=== PATIENT | male | born 1990 | race Caucasian/White ===

== ENCOUNTER 2021-02-12 08:33 | Outpatient (REF) | payer OTHER, SELFPAY ==
--- NOTE | ~2021-02-12 | XR_ITS ---
EXAMINATION: XR SHOULDER, LEFT CLINICAL INFORMATION: Shoulder pain. COMPARISON: None TECHNIQUE: AP external rotation, Grashey, scapular Y, and axillary views of the left shoulder. FINDINGS: The bones and soft tissues are normal. No fracture. Glenohumeral and acromioclavicular alignment is anatomic with normal joint space. No abnormal soft tissue calcifications. XR/XR shoulder LT min 2V IMPRESSION: Normal left shoulder.
== END 2021-02-12 08:34 | disposition home or self-care (01) ==
LOC: HO.HOSX 08:33
PROVIDERS: Visit Provider Physician Assistant
DX: S43.004A Unspecified dislocation of right shoulder joint, initial encounter (principal)
CPT/HCPCS: 73030; 99202

== ENCOUNTER 2021-02-16 12:58 | Outpatient (REF) | payer OTHER, SELFPAY ==
--- NOTE | ~2021-02-16 | MR_ITS ---
EXAMINATION: MR SHOULDER WITHOUT CONTRAST, LEFT CLINICAL INFORMATION: Left shoulder injury. Pain. Decreased range of motion. Dislocation 02/09/2021. COMPARISON: None TECHNIQUE: MR images of the shoulder were obtained on a 1.5 Odalis high-field strength scanner without intravenous contrast material. FINDINGS: ROTATOR CUFF: There is a partial-thickness articular-sided tear of the teres minor at the insertion, measuring approximately 1.2 cm craniocaudal and involving at least one-half of the tendon thickness. Rotator cuff is otherwise intact. No muscle atrophy or fatty infiltration. BICEPS: Normal. CORACOACROMIAL ARCH: The undersurface of the acromion is flat with no subacromial spur. The acromioclavicular joint is normal. LABRUM/CAPSULE: A circumferential tear is evident at the glenoid labrum. Superiorly, the tear extends into the biceps labral anchor without appreciable involvement of the biceps tendon itself. Posteriorly, the tear propagates along the posterior periosteal attachment to the glenoid rim with resultant attachment of the posterior labrum. Inferiorly, the labrum is torn and partially detached from the glenoid. The anteroinferior labrum, in particular, appears displaced anteroinferiorly by up to 4 mm. Joint capsule is thickened and edematous. The posterior band of the inferior glenohumeral ligament appears torn at the humeral attachment and is otherwise edematous and thickened. This tear underlies the attachment of the teres minor muscle. The anterior band of the inferior glenohumeral ligament also appears partially detached at the humeral insertion. The middle glenohumeral ligament is edematous and ill-defined. GLENOHUMERAL JOINT/MARROW: An articular cortical impaction injury at the posterosuperior humeral head measures 1 x 2 cm in an area with a depth of depression of 0.5 cm. The underlying marrow is edematous. There is associated cortical irregularity in this region. The posterior margin of the glenoid is edematous and irregular with stripping of the periosteum at the site of the labral tear. There is a small glenohumeral joint effusion. MR/MR shoulder LT wo con IMPRESSION: 1. Circumferential tear of the glenoid labrum with a nondisplaced, detached posterior labrum and a detached and minimally displaced anteroinferior labrum. 2. Partial tears of the anterior and posterior band of the inferior glenohumeral ligament at the humerus. 3. Small partial-thickness articular-sided tear of the teres minor muscle at the insertion of the humeral head. 4. Small to moderate-sized Hill-Sachs impaction deformity. 5. Osseous contusion of the anteroinferior glenoid without a discrete osseous Bankart injury.
== END 2021-02-16 12:59 | disposition home or self-care (01) ==
LOC: HO.MRI 12:58
PROVIDERS: Visit Provider Physician Assistant
DX: S43.005A Unspecified dislocation of left shoulder joint, initial encounter (principal); X58.XXXA Exposure to other specified factors, initial encounter; Y93.9 Activity, unspecified; Y92.9 Unspecified place or not applicable; Y99.9 Unspecified external cause status
CPT/HCPCS: 73221

== ENCOUNTER → 2021-02-26 09:21 | Outpatient (BNVA) | payer OTHER, SELFPAY | PROVIDERS: Visit Provider Physician Assistant ==

== ENCOUNTER → 2021-04-06 09:19 | Outpatient (BNVA) | payer OTHER, SELFPAY | PROVIDERS: Visit Provider Physician Assistant ==

== ENCOUNTER 2021-04-28 11:00 | Outpatient (REF) | payer OTHER, SELFPAY ==
[2021-04-28 11:38] LABS: Hematocrit 46.6 % (42-52); Hemoglobin 15.2 g/dl (14.0-18.0); Mean Corpuscular HGB Conc 32.6 g/dl (31.0-36.0); Mean Platelet Volume 11.8 fL (9.4-12.4); Platelet Count 213 X10*3/uL (160-400); Red Blood Count 5.42 X10*6/uL (4.60-5.80); Red Cell Distribution Width 12.5 % (11.0-16.0); White Blood Count 3.4 X10*3/uL (4.8-10.8)
[2021-04-28 11:54] LABS: Estimated Average Glucose 100 mg/dL; Hemoglobin A1c % 5.1 %
[2021-04-28 12:10] LABS: Alanine Aminotransferase 11 U/L (0-40); Albumin Level 4.7 g/dL (3.5-5.0); Alkaline Phosphatase 57 U/L (39-117); Anion Gap 14 (12-20); Aspartate Amino Transferase 13 U/L (5-37); Bilirubin Total 0.8 mg/dL (0.0-1.0); Blood Urea Nitrogen 13 mg/dL (9-16); Calcium 9.9 mg/dL (8.4-10.2); Carbon Dioxide 27 mmol/L (22-29); Chloride 105 mmol/L (96-108); Cholesterol 153 mg/dL; Estimated Glomerular Filt Rate > 60; Glucose Fasting 106 mg/dL (60-99); HDL Cholesterol 55 mg/dL; LDL Cholesterol Calculated 88 mg/dl; Potassium 4.6 mmol/L (3.3-5.1); Sodium 141 mmol/L (135-145); Total Protein 7.7 g/dL (6.5-8.0); Triglycerides 54 mg/dL
[2021-04-28 12:35] LABS: TSH reflex Free T4 0.98 uIU/mL (0.32-4.0)
== END 2021-04-28 11:01 | disposition home or self-care (01) ==
LOC: HO.LAB 11:00
PROVIDERS: PCP Physician Assistant; Visit Provider Physician Assistant
DX: Z13.220 Encounter for screening for lipoid disorders (principal); Z13.29 Encounter for screening for other suspected endocrine disorder; I10 Essential (primary) hypertension
CPT/HCPCS: 36415; 80053; 80061; 83036; 84443; 85027

== ENCOUNTER → 2021-05-10 09:31 | Outpatient (BNVA) | payer OTHER, SELFPAY | PROVIDERS: Visit Provider Physician Assistant ==

== ENCOUNTER 2021-05-11 08:00 | Outpatient (RCR) | payer OTHER, SELFPAY ==
--- NOTE | 2021-02-18 08:59 | MHC.PT.EP ---
[facility] [place] Office [place] Office [place] Office [address] Rach Chamorro [address] [phone] F: [phone] F: [phone] F: [phone] F: [phone] Physical Therapy Plan of Care Date of Evaluation: Date of Surgery: Diagnosis: pain in unspecified shoulder L shoulder dislocation Assessment: 31 y/o RHD male s/p L anterior shoulder dislocation 02/09/21. He currently has difficulty with dressing, grooming, sleeping, using L shoulder, sneezing, hobbies such as golf and working as a nurse. Examination shows decreased L shoulder PROM (AROM NT), L shoulder not formally tested secondary to precautions of recent dislocation, elbow and wrist ROM WNL, sensation intact to light touch, and impaired postural awareness. Recommend PT 2x/week for 12 weeks to address impairments, implement HEP, and optimize functional mobility. Frequency and Duration: The patient will be seen 2x/week for 12 weeks Short Term Goals: 6 weeks 1. Demonstrate AAROM flexion to 160 2. I with HEP 3. Pt will demonstrate L shoulder ER to 10 degrees Skilled Nursing Goals: 12 weeks 1. I with HEP and self management of sx 2. Pt will demonstrate L shoulder AROM WFL to assist with dressing and reaching overhead 3. Pt will demonstrate L shoulder strength to 4/5 to assist with lifting and work duties Treatment Plan: Modalities to reduce pain, spasms and effusion. Manual therapy to restore motion and function. Therapeutic exercise to improve strength and flexibility. Neuromuscular re-education for posture and balance. Therapeutic activities to return to functional activities of daily living. Electronically signed by: Saida Dumont PT Please sign and return to therapist. Thank you for your referral.
--- NOTE | 2021-04-06 09:17 | MHC.PT.PR ---
[facility] [place] Office [place] Office [place] Office [address] Rach Chamorro [address] [phone] F: [phone] F: [phone] F: [phone] F: [phone] Physical Therapy Progress Note Diagnosis: pain in unspecified shoulder L shoulder dislocation Date of Surgery: NA Date of Evaluation: 02/18/21 Treatments to Date: 11 Cancellations to Date: 1 No Shows to Date: 0 Subjective: Reports overall feeling good with end-range tightness. Every once in awhile, he has moments of instability or pain, but it is random and he cannot associate what causes these episodes. Pain Score and Location: 0 L Shoulder Objective Measures: Shoulder AROM ER at 90 deg abd: 62 ER at 45 deg abd: 50 Flexion 180 Abduction ~180 Assessment: Pt is progressing well with full AROM except external rotation is still limited. He tends to compensate with thoracic extension with ER. He reports fatigue at end-range flexion, abduction, and external rotation with exercises. Good scapular control noted. He may benefit from manual resistance at end range to improve end-range strength and stability. Continue to progress per protocol (he is between phase 2 and 3 at this time). He has a f/u with ortho today. PT Plan: Continue with PT Frequency and Duration: The patient will be seen 2x/week for 3 more weeks Treatment Plan: Therapeutic Exercise Dynamic Therapeutic Activities Neuromuscular Re-ed Manual Therapies Home Exercise Program Patient Education Reviewed/ Agreed with Student Documentation: Yes Therapist: Saida Dumont PT Thank you once again for your referral.
--- NOTE | 2021-04-28 09:58 | MHC.PT.OD ---
[facility] [place] Office [place] Office [place] Office [address] Rach Chamorro [address] [phone] F: [phone] F: [phone] F: [phone] F: [phone] Physical Therapy Daily Note Diagnosis: pain in unspecified shoulder L shoulder dislocation Date of Surgery: NA Date of Evaluation: 02/18/21 Date of Treatment: 04/22/21 Treatments to Date: 15 Cancellations to Date: 1 No Shows to Date: 0 Authorized Visits: 100 Insurance End Date: Precautions/ Contraindications:L shoulder anterior dislocation 02/09/21 Subjective: He states he feels a click/clunk 75% of the time he raises his arm in scaption around 75-80 degrees. Pain Score and Location: 0 L Shoulder Objective Flowsheet: Tests & Measures 04/06 Shoulder AROM ER at 90 deg abd: 62 ER at 45 deg abd: 50 Flexion 180 Abduction ~180 Exercises - Moving body blade through ABD & Flexion range x 60 sec x 2 each - Body blad at 90 degrees flexion, scaption, ABD x 30 sec x 3 each - Ball on wall moving through flexion B x 60 sec x 3 - Prone Y's w/ 1lb 3 x 10 - standing GTB row L side only 3x10 - Standing H.ABD at 90 degrees SH flexion w/ SH full ER w/ YTB 3 x 10 - standing RTB shld ext L side only 3x10 (Not today) s/l abd. and scaption c 1# 3x10 ea (Not today) bear crawls forward/lateral 8'x4 ea Work simulation: rolling pt supine to s/l x3 and boosting 1 person x2 2 people x1 Half kneel RTB ER 3x10 Quadruped progressions: hip ext./UE ext. 2x10 ea Incline BOSU pushups 2x10 Body blade IR/ER/Flex 3x45 sec ea (Not today) s/l ER manual resistance concentric/eccentric 3x10 Supine RS at 45* 70* 90* 2x30 sec ea Supine manual resistance concentric/eccentric flexion thru range x4 Modalities Assessment: Clicking remains random to Edward. No clicks noted during session today. He continues to tolerate exercise well at PT with good effort. He showed improve scapular control today during exercises maintaining retraction and depression when needed. 90 degrees H.ABD with full ER issued with YTB for HEP. Continue to strengthen his scpaular stability per protocol. PT Plan: Shoulder dislocation protocol, rhythmic stabilization, isometrics, ROM Protocol in chart Short Term Goals: 6 weeks 1. Demonstrate AAROM flexion to 160 - met 2. I with HEP - met 3. Pt will demonstrate L shoulder ER to 10 degrees - met Vp Organizational Development Goals: 12 weeks 1. I with HEP and self management of sx 2. Pt will demonstrate L shoulder AROM WFL to assist with dressing and reaching overhead - met 3. Pt will demonstrate L shoulder strength to 4/5 to assist with lifting and work duties Electronically signed by: Jeannine Morgan PT, DPT
--- NOTE | 2021-06-23 11:25 | MHC.PT.DC ---
[facility] [place] Office [place] Office [place] Office [address] Rach Chamorro [address] [phone] F: [phone] F: [phone] F: [phone] F: [phone] Physical Therapy Discharge Report Diagnosis: pain in unspecified shoulder L shoulder dislocation Date of Surgery: NA Date of Evaluation: 02/18/21 Date of Discharge: 06/23/21 Treatments to Date: 19 Cancellations to Date: 1 No Shows to Date: 0 Discharge Status: Achieved Goals Improved Function Independent with HEP Discharge Summary: Pt did not f/u with final visit and has RTW. At last visit, Pt continues to demonstrate improved endurance with shoulder ER and scapular stabilization exercises. Pt met with ortho yesterday and is cleared to return to work. Pt will schedule PT 1-2 weeks out to f/u with work and review and progress exercises; pt in agreement. Pt educated on increasing volume of exercises at home with sets/reps to tolerance and increase weight. Next visit increase shoulder abd range to perform standing ER c band. Electronically signed by: Saida Dumont PT, DPT Please sign and return to therapist. Thank you for your referral.
== END 2021-06-23 11:26 | disposition home or self-care (01) ==
LOC: HO.PT 08:00
PROVIDERS: Visit Provider Physician Assistant
DX: M25.512 Pain in left shoulder (principal)
CPT/HCPCS: 97110; 97112; 97140; 97161; 97530

== ENCOUNTER → 2021-06-08 08:23 | Outpatient (BNVA) | payer OTHER, SELFPAY | PROVIDERS: PCP Physician Assistant; Visit Provider Internal Medicine | DX: R00.2 Palpitations (principal); Z86.79 Personal history of other diseases of the circulatory system | CPT/HCPCS: 93005 ==

== ENCOUNTER → 2021-06-22 10:59 | Outpatient (REF) | payer OTHER, SELFPAY ==
--- NOTE | 2021-06-22 11:03 | HM_ITS ---
Patient was monitored for total period of 14 days and 2 hours. Based on the was normal sinus rhythm with average heart rate of 75 beats per minute There were no sustained arrhythmias noted No total of 158 PACs accounting for 0.01% of total beats. This account for very rare PACs There were 2 supraventricular episodes longest 4 beats at 162 beats per minute noted There were total of 720 isolated PVCs accounting for total burden of 0.06%, very rare PVCs. Patient reported event correlates with sinus rhythm MTDD
== END ==
LOC: HO.CARD 10:59
PROVIDERS: PCP Physician Assistant; Visit Provider Internal Medicine
DX: R00.2 Palpitations (principal)
CPT/HCPCS: 93246

== ENCOUNTER → 2021-07-08 07:30 | Outpatient (REF) | payer OTHER, SELFPAY ==
--- NOTE | 2021-07-08 07:33 | CA_ITS ---
Transthoracic Echocardiogram Patient (Last, First, Middle): Edward Jorge J Gender: Male Date of : 1990 Age: 31 Procedure Date: 07/08/2021 Procedure Type: Transthoracic Echocardiogram Location: OP Height: 187.96 cm Weight: 83.92 kg BSA: 2.10 m2 Heart Rate: bpm BP: 140 / 80 mmHg Thread Drawer: ELAINA/JOANN Referring MD: Lester Garcia MD Symptoms: R00.2 - Palpitations Study Quality: Good ECG Rhythm: Sinus Conclusions: - The left ventricular systolic function is normal. The calculated ejection fraction is 59% by biplane method. - No obvious valvular pathology seen on this study. Findings Left Ventricle Normal left ventricular cavity size. There is normal left ventricular wall thickness. The left ventricular systolic function is normal. The calculated ejection fraction is 59% by biplane method. There is no evidence of regional wall motion abnormalities. Diastolic function is normal for age. Right Ventricle Normal right ventricular cavity size and systolic function. Atria Both atria are normal in size. Aortic Valve There is a normal trileaflet aortic valve. There is no aortic valve stenosis. There is no aortic valve regurgitation. Mitral Valve The mitral valve appears normal. There is trace mitral valve regurgitation. There is no mitral valve stenosis. Pulmonic Valve The pulmonic valve was not well visualized. Tricuspid Valve Normal tricuspid valve structure. There is trace tricuspid valve regurgitation. The pulmonary artery systolic pressure is normal. Great Vessels The aorta was not well visualized. The aortic annulus is normal in size. Venous The inferior vena cava is normal in size and collapses greater than 50% with inspiration. Pericardium/Pleural There is a trivial pericardial effusion. Prior Study Comparison No prior study available for comparison. Recommendations, Care & Conclusions No obvious valvular pathology seen on this study. Measurements 2D Linear Measurements IVSd: 0.81 0.6-0.9/0.6-1.0 cm LVIDd: 5.34 3.9-5.3/4.2-5.9 cm LVIDd Index: 2.54 2.4-3.2/2.2-3.1 cm/m2 LVIDs: 3.70 2.0-3.6 cm LVPWd: 0.75 0.7-1.1 cm Ao Root: 3.30 2.1-3.5 cm LA Diam: 3.50 2.7-3.8/3.0-4.0 cm LAIDs Index: 1.67 1.5-2.3 cm/m2 LV Mass: 183.73 67-162/88-224 g LV Mass Index: 87.49 43-95/49-115 g/m2 LVOT Diam: 2.20 3.0+(-)1.3 cm 2D Systolic Function EF 4C: 57.40 >55% EF 2C: 61.30 >55% EF BiP: 59.00 >55% Mitral Valve MV Pk E: 0.75 MV PK A: 0.64 MV Decel Time: 230.00 E/A: 1.20 E'Lateral: 15.20 E'Medial: 12.40 E/E' Med: 6.00 E/E' Lat: 4.90 PHT: 67.00 MVA PHT: 3.28 Decel Sequoyah: 3.26 Aortic Valve AoV Pk Warren: 1.42 AoV Mn Warren: 1.05 AoV VTI: 0.32 AoV Pk Grad: 8.00 Aov Mn Grad: 5.00 NIELS Cont.VTI: 2.62 LVOT LVOT Pk Warren: 1.17 LVOT Mn Warren: 0.79 LVOT VTI: 0.22 LVOT Pk Grad: 5.00 LVOT Mn Grad: 3.00 LVOT Diam: 2.20 LVOT Area: 3.80 Diastolic Function MV Pk E: 0.75 MV Pk A: 0.64 E/A: 1.20 E'Medial: 12.40 E/E' Med: 6.00 E' Laterial: 15.20 E/E' Lat: 4.90 Right Ventricle TAPSE (mm): 2.88 TVS' Warren: 15.60 Tricuspid Valve TR Pk Warren: 1.94 TR Pk Grad: 15.00 RA Press: 3.00 RVSP: 18.00 Great Vessels Aorta Ao Root-2D: 3.30 2.0-3.7 cm Ao Arch: 2.20 Updated in Other Vendor System with Status of Final Lester Garcia MD electronically signed on 07/09/2021 11:28:58 AM with status of Final
[2021-07-11 13:26] LABS: TS Negative Control Passed; TS Panel A 0; TS Panel B 0; TS Positive Control Passed; TSpotTB Negative (SeeBelow)
== END ==
LOC: HO.CARD 07:30
PROVIDERS: Absent Provider Physician Assistant; PCP Physician Assistant; Visit Provider Internal Medicine
DX: Z11.1 Encounter for screening for respiratory tuberculosis (principal); R00.2 Palpitations
CPT/HCPCS: 36415; 86481; 93306

== ENCOUNTER 2021-07-23 13:06 | Outpatient (REF) | payer OTHER, SELFPAY ==
[2021-07-23 13:24] LABS: MANUAL DIFF FLAG NO
[2021-07-23 13:45] LABS: Urine Cytology See Pathology rpt
[2021-07-23 13:47] LABS: Basophils Absolute Auto 0.1 X10*3/uL (0.0-0.2); Basophils Percent Auto 0.8 % (0-2); Eosinophils Absolute Auto 0.3 X10*3/uL (0.0-0.4); Hematocrit 44.6 % (42-52); Hemoglobin 15.1 g/dl (14.0-18.0); Imm Gran Abs Auto 0.02 X10*3/uL (0.00-0.03); Imm Gran Pct Auto 0.3 % (0.0-0.4); Lymphocytes Absolute Auto 1.6 X10*3/uL (1.2-4.9); Lymphocytes Percent Auto 24.8 % (20-40); Mean Corpuscular HGB Conc 33.9 g/dl (31.0-36.0); Mean Corpuscular Hemoglobin 28.5 pg (27.0-33.0); Mean Corpuscular Volume 84.2 fL (80-98); Mean Platelet Volume 11.1 fL (9.4-12.4); Monocytes Absolute Auto 0.7 X10*3/uL (0.1-1.2); Neutrophils Absolute Auto 3.9 X10*3/uL (2.0-8.3); Neutrophils Percent Auto 60.1 % (45-73); Platelet Count 256 X10*3/uL (160-400); Red Cell Distribution Width 12.4 % (11.0-16.0); White Blood Count 6.5 X10*3/uL (4.8-10.8)
[2021-07-23 13:55] LABS: Appearance Urine CLEAR; Color Urine STRAW; Glucose Urine UA NEG (NEG); Leukocyte Esterase Urine NEG (NEG); Nitrite Urine NEG (NEG); Specific Gravity - Urine <= 1.005 (1.005-1.025); Urine Blood NEG (NEG); Urine Ketones NEG (NEG); Urine Protein NEG (NEG-TRACE)
== END 2021-07-23 13:07 | disposition home or self-care (01) ==
LOC: HO.LAB 13:06
PROVIDERS: PCP Physician Assistant; Visit Provider Physician Assistant
DX: R82.90 Unspecified abnormal findings in urine (principal); R30.0 Dysuria; D72.819 Decreased white blood cell count, unspecified
CPT/HCPCS: 36415; 81003; 85025; 87086; 88112

== ENCOUNTER → 2022-07-27 09:44 | Outpatient (RCR) | payer OTHER, SELFPAY ==
[2020-08-20 07:07] LABS: COVID-19 Test Negative (Negative)
[2020-09-02 14:15] LABS: COVID-19 Test Negative (Negative); IDNOW Serial# 55D5AD1C
== END | disposition home or self-care (01) ==
LOC: HO.EMPCOV 08-20 06:41
PROVIDERS: Visit Provider Internal Medicine
DX: Z20.828 Contact with and (suspected) exposure to other viral communicable diseases (principal)
CPT/HCPCS: 87635; C9803

== ENCOUNTER 2022-12-28 10:26 | Outpatient (REF) | payer OTHER, SELFPAY ==
[2022-12-28 10:37] LABS: MANUAL DIFF FLAG NO
[2022-12-28 11:03] LABS: Basophils Percent Auto 0.7 % (0-2); Eosinophils Absolute Auto 0.1 X10*3/uL (0.0-0.4); Eosinophils Percent Auto 2.4 % (0-4); Hematocrit 47.5 % (42.0-52.0); Hemoglobin 15.9 g/dl (14.0-18.0); Imm Gran Abs Auto 0.01 X10*3/uL (0.00-0.03); Imm Gran Pct Auto 0.2 % (0.0-0.4); Lymphocytes Absolute Auto 1.3 X10*3/uL (1.2-4.9); Lymphocytes Percent Auto 32.2 % (20-40); Mean Corpuscular HGB Conc 33.5 g/dl (31.0-36.0); Mean Corpuscular Hemoglobin 28.7 pg (27.0-33.0); Mean Corpuscular Volume 85.7 fL (80.0-98.0); Mean Platelet Volume 11.4 fL (9.4-12.4); Monocytes Absolute Auto 0.5 X10*3/uL (0.1-1.2); Monocytes Percent Auto 11.8 % (2-11); Neutrophils Absolute Auto 2.2 x10*3/uL (2.0-8.3); Neutrophils Percent Auto 52.7 % (45-73); Platelet Count 200 X10*3/uL (160-400); Red Blood Count 5.54 X10*6/uL (4.60-5.80); Red Cell Distribution Width 12.2 % (11.0-16.0); White Blood Count 4.2 X10*3/uL (4.8-10.8)
[2022-12-28 14:42] LABS: Alanine Aminotransferase 14 U/L (0-40); Albumin Level 4.5 g/dL (3.5-5.0); Alkaline Phosphatase 62 U/L (39-117); Anion Gap 10 (12-20); Aspartate Amino Transferase 14 U/L (5-37); Bilirubin Total 0.8 mg/dL (0.0-1.0); Blood Urea Nitrogen 15 mg/dL (9-16); Calcium 9.5 mg/dL (8.4-10.2); Carbon Dioxide 32 mmol/L (22-29); Chloride 103 mmol/L (96-108); Cholesterol 182 mg/dL; Estimated Glomerular Filt Rate > 60; Glucose Random 91 mg/dL (60-115); HDL Cholesterol 55 mg/dL; LDL Cholesterol Calculated 118 mg/dl; Potassium 4.4 mmol/L (3.3-5.1); Sodium 141 mmol/L (135-145); Total Protein 7.2 g/dL (6.5-8.0); Triglycerides 45 mg/dL
[2022-12-28 15:21] LABS: Folate 15.3 ng/mL (> or = 4.0); Free T4 (Free Thyroxine) 1.06 ng/dL (0.71-1.85); Thyroid Stimulating Hormone 1.05 uIU/mL (0.32-4.0)
[2022-12-29 06:41] LABS: Vitamin B12 1071 pg/mL (200-900)
== END 2022-12-28 10:27 | disposition home or self-care (01) ==
LOC: HO.LAB 10:26
PROVIDERS: PCP Internal Medicine; Visit Provider Internal Medicine
DX: K21.9 Gastro-esophageal reflux disease without esophagitis (principal); E78.00 Pure hypercholesterolemia, unspecified
CPT/HCPCS: 36415; 80053; 80061; 82607; 82746; 84439; 84443; 85025

== ENCOUNTER 2023-07-03 14:57 | Outpatient (AMB) | payer OTHER, SELFPAY ==
[2023-07-03 15:04] VITALS: BP 116/72; PULSE 75; O2SAT 99; BMI 24.8
--- NOTE | 2023-07-03 15:04 | MHC.PC.OV ---
Vital Signs 07/03/23 15:04 Height 6 ft 2 in Weight 193 lb BMI 24.8 BP 116/72 Blood Pressure Location Lt brachial Position Sitting Pulse 75 Pulse Source Pulse Oximeter Pulse Oximetry (%) 99 Oxygen Delivery Method Room Air Intake Visit Reasons: Discuss stool changes Intake Note: Pt is here to discuss ongoing stool changes due to medications. 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 Accompanied by: Self / Same As Patient Allergies No Known Allergies Allergy (Verified 07/03/23 15:14) Medication List - Last Reconciled 07/03/23 by Javon Martinez PA-C bupropion HCl (Wellbutrin XL) 300 mg PO QAM omeprazole 20 mg PO DAILY Tobacco use date assessed: 11/07/22 Dental Screening Dental Screen Date: 07/03/23 Did you have a dental visit in the last 12 months?: No Did you have a dental problem in the last 6 months where you did not have access to dental care?: No Was dental information given to patient?: Patient has dentist HPI Discuss stool changes HPI Details Patient is a 33-year-old male here today for problem visit. Reports having started strattera 6 month ago ADHD and believed he started to have changes in bowel habits. He reports also noting mucus in his stools. Her he does report having abdominal pain though was not necessarily associated with the bowel movement. He denies any rapid weight loss, fevers or vomiting. He does report having a family history of colon cancer. He has tried [id number] meds, probiotics and changes in his diet which have not been very affective. He also reports having tried to non stimulant ADHD medication recently which have caused him side effect in were not effective. He is interested in starting a stimulant medication to help him with his attention focus on tasks at work. He works as an RN in primary care. [facility] Medical History (Updated 07/03/23 @ 15:40 by Javon Martinez PA-C) Annual physical exam Heart palpitations Tinea versicolor Shoulder pain Surgical History H/O adenoidectomy History of cardiac cath H/O elbow surgery History of ankle surgery Family History Paternal Uncle Mental health disorder CLL (chronic lymphocytic leukemia) Father Prostate cancer Paternal Grandfather Colon cancer Paternal Aunt Colon cancer Maternal Grandmother Heart attack Social History Housing: House Alcohol intake: current Patient Tobacco Use Status: Never used Tobacco e-Cigarette/Vaping Use: Never Used Second Hand Smoke Exposure: No service: No Current occupational status: employed and unemployed Current occupation: [employer] Nurse - Right Handed Cognitive needs: No Hearing needs: No Vision needs: No Questionnaire Thrive Questionnaire Date Thrive assessed: 01/04/23 SUDHEER-7 AMB Questionnaire SUDHEER-7 Date SUDHEER - 7 assessed: 01/04/23 Source: Developed by Drs. Alex Henry, Brit Dickey, Peter Mcmanus and colleagues, with an educational yousuf from [employer]. Review of Systems Const Denies headache(s) Eyes Denies loss of vision ENT Denies vertigo, Denies dizziness, Denies headache(s) and Denies sore throat Card Denies chest pain, Denies leg edema and Denies lightheadedness Resp Denies cough, Denies hemoptysis and Denies wheezing GI Reports abdominal pain, Denies melena, Reports bloating, Reports change in bowel habits, Denies constipation, Denies diarrhea and Denies vomiting Denies dysuria, Denies urinary frequency and Denies urinary urgency Musc Denies arthralgias, Denies joint swelling, Denies numbness and Denies tingling Neuro Denies Abnormal speech present, Denies behavioral changes, Denies vertigo, Denies dizziness, Denies headache(s), Denies loss of vision, Denies memory loss, Denies numbness and Denies tingling Psych Denies anxiety, Denies behavioral changes, Denies depression, Denies memory loss and Denies panic attacks Vu/Lymph Denies easy bleeding and Denies easy bruising Aller/Immun Denies wheezing Physical exam (Primary Care) Vital Signs: Last Vital Signs Pulse 75 07/03/23 15:04 BP 116/72 07/03/23 15:04 Pulse Ox 99 07/03/23 15:04 Oxygen Delivery Method Room Air 07/03/23 15:04 BMI result Body Mass Index 24.8 Tobacco/Smoking Status: Tobacco use Status Tobacco use date assessed 11/07/22 07/03/23 15:05 Patient Tobacco Use Status Never used Tobacco 07/03/23 15:05 e-Cigarette/Vaping Use Never Used 07/03/23 15:05 Thrive Assessment: Date of Thrive Assessment Date Thrive assessed 01/04/23 07/03/23 15:05 Const General: healthy appearing, no acute distress, alert and awake Nutritional Appearance: well nourished Orientation/consciousness: oriented to person, oriented to place and oriented to time HENMT Ears: TM's normal bilaterally General nose exam: Normal nasal mucous membranes and turbinates present Eyes Conjunctivae: conjunctivae normal Sclerae: sclerae normal Pupils: Equal, round and reactive pupils present Neck Neck: Yes no lymphadenopathy and Yes no JVD Thyroid: Thyroid normal Carotids: no bruits Resp Effort & Inspection: normal respiratory effort and not tachypneic Auscultation: no crackles, no rales, no rhonchi and no wheezes Cardio Rate: regular rate Rhythm: regular rhythm Heart sounds: no murmurs and normal S1 and S2 GI Palpation (GI): Soft to palpation, nontender, no hepatomegaly and no splenomegaly Auscultation: normal bowel sounds Skin General skin exam: no rashes or lesions noted and dry skin Neuro General: oriented to person, oriented to place and oriented to time Cranial nerves: Yes Equal, round and reactive pupils present Speech: No Abnormal speech present Gait exam (Neuro): Normal gait present Motor exam (neuro): no tremor noted Extrem Right upper extremity: full ROM Left upper extremity: full ROM Right lower extremity: full ROM; no edema Left lower extremity: full ROM; no edema Psych Mental Status: mental status grossly normal Speech and movement: Normal speech and movement present Affect: normal affect Attitude: cooperative Thought process: Normal thought process present Assessment and Plan Assessment & Plan (1) Change in bowel habits: Code(s): R19.4 - Change in bowel habit Plan: Patient is a 6 month history change in stool and mucus in his stool. He does report some intermittent abdominal cramping that is global eyes and not targeted to 1 area of his abdomen. He denies any fevers or diarrhea. No significant weight loss noted He has tried stool bulking agents, probiotics and changing his diet all without much significant improvement in his bowel habits and mucus noted in his stool. He does report having a family history of colon cancer and is interested in prep seeing GI for colonoscopy. If workup negative will consider pelvic floor therapy for possible pelvic floor dysfunction. (2) Mucus in stool: Code(s): R19.5 - Other fecal abnormalities (3) ADHD: Code(s): F90.9 - Attention-deficit hyperactivity disorder, unspecified type Qualifiers: Attention deficit-hyperactivity disorder type: predominantly inattentive Qualified Code(s): F90.0 - Attention-deficit hyperactivity disorder, predominantly inattentive type Plan: Has tried both Strattera and Wellbutrin for ADHD-inattentive which were ineffective in cause side effects. Was on stimulant medication in his younger though it hers which were factor for him. He is interested in restarting stimulant medication to help be more focused on job tasks. Orders: Orders Leukocytes Stool Qualitative 07/03/23 R19.5 - Other fecal abnormalities CRP High Sensitivity 07/03/23 R19.5 - Other fecal abnormalities Lipase 07/03/23 R19.5 - Other fecal abnormalities pH stool 07/03/23 R19.5 - Other fecal abnormalities Giardia Ag Stool EIA 07/03/23 R19.5 - Other fecal abnormalities Liver Panel 07/03/23 R19.5 - Other fecal abnormalities Complete Blood Count no Diff 07/03/23 R19.5 - Other fecal abnormalities Erythrocyte Sedimentation Rate 07/03/23 R19.5 - Other fecal abnormalities Referrals Gastroenterology Referral R19.5 - Other fecal abnormalities Medications: New dextroamphetamine-amphetamine 10 mg (Adderall) Partial Fill upon patient request. 10 mg PO DAILY 28 days 28 tabs 0RF F90.9 - Attention-deficit hyperactivity disorder, unspecified type Coding Level of Care Code Est Pt Level 4 (97496) Diagnoses Change in bowel habits R19.4 Mucus in stool R19.5 Attention deficit hyperactivity disorder (ADHD), predominantly inattentive type F90.0 Attention deficit-hyperactivity disorder type: predominantly inattentive
== END 2023-07-03 15:36 | disposition home or self-care (01) ==
PROVIDERS: PCP Internal Medicine; Visit Provider Physician Assistant
DX: R19.4 Change in bowel habit (principal); R19.5 Other fecal abnormalities; F90.0 Attention-deficit hyperactivity disorder, predominantly inattentive type
CPT/HCPCS: 99214

== ENCOUNTER 2023-07-03 15:40 | Outpatient (REF) | payer OTHER, SELFPAY ==
[2023-07-03 16:32] LABS: Hematocrit 44.9 % (42.0-52.0); Hemoglobin 14.9 g/dl (14.0-18.0); Mean Corpuscular HGB Conc 33.2 g/dl (31.0-36.0); Mean Corpuscular Hemoglobin 28.5 pg (27.0-33.0); Mean Corpuscular Volume 85.9 fL (80.0-98.0); Mean Platelet Volume 11.5 fL (9.4-12.4); Platelet Count 206 X10*3/uL (160-400); Red Blood Count 5.23 X10*6/uL (4.60-5.80); Red Cell Distribution Width 12.7 % (11.0-16.0); White Blood Count 4.8 X10*3/uL (4.8-10.8)
[2023-07-03 17:11] LABS: Alanine Aminotransferase 34 U/L (0-40); Albumin Level 4.5 g/dL (3.5-5.0); Alkaline Phosphatase 60 U/L (39-117); Aspartate Amino Transferase 33 U/L (5-37); Bilirubin Direct 0.1 mg/dL (0.0-0.5); Bilirubin Total 0.3 mg/dL (0.0-1.0); Lipase 11 U/L (8-78); Total Protein 7.4 g/dL (6.5-8.0)
[2023-07-03 19:00] LABS: Erythrocyte Sedimentation Rate 2 MM/HR (0-15)
[2023-07-05 16:54] LABS: CRP High Sensitivity 1.4 mg/L
== END 2023-07-03 15:41 | disposition home or self-care (01) ==
LOC: HO.LAB 15:40
PROVIDERS: PCP Physician Assistant; Visit Provider Physician Assistant
DX: R19.5 Other fecal abnormalities (principal)
CPT/HCPCS: 36415; 80076; 83690; 85027; 85652; 86141

== ENCOUNTER 2024-01-16 13:04 | Outpatient (AMB) | payer OTHER, SELFPAY ==
--- NOTE | 2024-01-16 13:09 | MHC.PC.OV ---
Vital Signs 01/16/24 13:10 Height 6 ft 2 in Weight 190 lb BMI 24.4 BP 138/70 Blood Pressure Location Lt brachial Position Sitting Pulse 78 Pulse Source Pulse Oximeter Pulse Oximetry (%) 98 Oxygen Delivery Method Room Air Intake Visit Reasons: PHYSICAL Allergies No Known Allergies Allergy (Verified 01/16/24 13:10) Medication List - Last Reconciled 01/16/24 by Víctor Monroe MD bupropion HCl XL 150 mg PO QAM dextroamphetamine-amphetamine 10 mg ER (Adderall XR) 10 mg PO DAILY 28 days famotidine 20 mg PO BEDTIME hydrocortisone 2.5% (Proctosol HC) 1 appl [place] BID-QID PRN multivitamin 1 tab PO DAILY Tobacco use date assessed: 01/16/24 Dental Screening Dental Screen Date: 01/16/24 Did you have a dental visit in the last 12 months?: Yes Did you have a dental problem in the last 6 months where you did not have access to dental care?: No Was dental information given to patient?: Patient has dentist HPI PHYSICAL HPI Details 34-year-old male with ADHD, GERD and generalized anxiety disorder coming in for physical exam. Last seen in December 2022. Patient was last seen by the nurse practitioner in June due to change in bowel habits patient was referred to Gastroenterology. did not see GI but fiber added and is better. [facility] Medical History (Updated 01/16/24 @ 18:35 by Víctor Monroe MD) Annual physical exam Heart palpitations Tinea versicolor Shoulder pain Surgical History H/O adenoidectomy History of cardiac cath H/O elbow surgery History of ankle surgery Family History (Updated 01/16/24 @ 13:23 by Víctor Monroe MD) Paternal Uncle Mental health disorder CLL (chronic lymphocytic leukemia) Father Prostate cancer Paternal Grandfather Colon cancer Paternal Aunt Colon cancer Maternal Grandmother Heart attack Paternal Grandmother CVA (cerebral vascular accident) Social History (Updated 01/16/24 @ 13:24 by Víctor Monroe MD) Housing: House Alcohol intake: current Comment: 1-2 x a week 1-2 drinks Patient Tobacco Use Status: Never used Tobacco Years Smoked: marijuana- edibles e-Cigarette/Vaping Use: Never Used Second Hand Smoke Exposure: No service: No Current occupational status: employed and unemployed 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 1. Little interest or pleasure in doing things: not at all 2. Feeling down, depressed, or hopeless: not at all 3. Trouble falling or staying asleep, or sleeping too much: not at all 4. Feeling tired or having little energy: not at all 5. Poor appetite or overeating: not at all 6. Feeling bad about yourself - or that you are a failure or have let yourself or your family down: not at all 7. Trouble concentrating on things, such as reading the newspaper or watching television: not at all 8. Moving or speaking so slowly that other people could have noticed. Or the opposite - being so fidgety or restless that you have been moving around a lot more than usual: not at all 9. Thoughts that you would be better off or of hurting yourself in some way: not at all Total score: 0 Depression Screening Interpretation: Negative Depression Screening Done: Yes Source: Developed by Drs. Alex Henry, Brit Dickey, Peter Mcmansu and colleagues, with an educational yousuf from [employer]. Thrive Questionnaire Date Thrive assessed: 01/16/24 I am a: Patient What is your living situation today?: I have a steady place to live Within the past 12 months, did the food you bought not last and you didn't have the money to get more?: Never true Within the past 12 months, did you worry whether your food would run out before you got money to buy more?: Never true Do you have trouble paying for medicines?: No Do you have trouble getting transportation to medical appointments?: No Do you have trouble paying your heating and electricity bill?: No Do you have trouble taking care of your child, family member or friend?: No Do you have trouble with day-to-day activities such as bathing, preparing meals, shopping, managing finances, etc.?: No Are you currently unemployed and looking for a job?: No Are you interested in more education?: No Currently or been in a relationship where the following occur: no concerns reported THRIVE Score: 0 AUDIT C Alcohol Use Questionnaire (AUDIT-C) 1. How often do you have a drink containing alcohol?: 2-4 times a month 2. How many drinks containing alcohol do you have on a typical day when you are drinking?: 1 or 2 3. How often do you have six or more drinks on one occasion?: Never Total Score: 2 Score Reviewed/Action Taken: Yes SUDHEER-7 AMB Questionnaire SUDHEER-7 Date SUDHEER - 7 assessed: 01/16/24 Feeling nervous, anxious, or on edge: 0 = Not at all Not being able to stop or control worryin = Not at all Worrying too much about different things: 0 = Not at all Trouble relaxin = Not at all Being so restless that it is hard to sit still: 0 = Not at all Becoming easily annoyed or irritable: 0 = Not at all Feeling afraid as if something awful might happen: 0 = Not at all Total SUDHEER-7 score (0-4 normal; 5-9 mild; 10-14 moderate; 15-21 severe): 0 Source: Developed by Drs. Alex Henry, Brit Dickey, Peter Mcmanus and colleagues, with an educational yousuf from [employer]. Review of Systems Const Denies poor appetite and Denies weakness Eyes Denies no additional complaints ENT Reports Normal hearing present, Denies dizziness, Denies nasal congestion, Denies tinnitus and Denies sore throat Card Denies chest pain, Denies syncope, Denies rapid heart rate and Denies dyspnea Resp Denies cough and Denies dyspnea GI Denies change in stool character, Reports constipation, Denies diarrhea, Denies nausea and Denies vomiting Denies dysuria and Denies urinary frequency Neuro Reports Normal hearing present, Denies confusion, Denies dizziness, Denies syncope and Denies weakness Psych Denies confusion Physical exam (Primary Care) Vital Signs: Last Vital Signs Pulse 78 01/16/24 13:10 BP 138/70 01/16/24 13:10 Pulse Ox 98 01/16/24 13:10 Oxygen Delivery Method Room Air 01/16/24 13:10 BMI result Body Mass Index 24.4 Tobacco/Smoking Status: Tobacco use Status Tobacco use date assessed 01/16/24 01/16/24 13:14 Patient Tobacco Use Status Never used Tobacco 01/16/24 13:24 e-Cigarette/Vaping Use Never Used 01/16/24 13:24 PHQ-9: PHQ-9 Score PHQ-9: Total score 0 01/16/24 13:14 Depression Screening Interpretation: Negative Thrive Assessment: Date of Thrive Assessment Date Thrive assessed 01/16/24 01/16/24 13:14 Currently or been in a relationship where the following occur: no concerns reported Const General: No confusion Orientation/consciousness: No confusion HENMT Head: Yes normocephalic Ears: external ears normal and TM's normal bilaterally Face and sinus: Yes normal facial exam Mouth: moist mucous membranes Throat: Yes tonsils normal Eyes Conjunctivae: conjunctivae normal Pupils: Equal, round and reactive pupils present and Pupil accommodation reflex normal Direct Ophthalmoscopy: normal light reflex Neck Neck: No lymphadenopathy Thyroid: Thyroid normal Chest Chest palpation & inspection: normal inspection of the chest Resp Effort & Inspection: normal respiratory effort and no audible wheezes Auscultation: clear to auscultation bilaterally, no crackles, no wheezes and lung sounds not diminished Cardio Rate: regular rate Rhythm: regular rhythm Peripheral pulses: radial pulses present and dorsalis pedis present GI Palpation (GI): no masses Auscultation: normal bowel sounds and normoactive bowel sounds Rectal Exam - Male: Yes deferred Skin General skin exam: no rashes or lesions noted Rashes: no rashes Neuro General: No confusion Cranial nerves: Yes Equal, round and reactive pupils present and Yes Normal hearing present Cognition (Neuro): normal cognition Gait exam (Neuro): Normal gait present Motor exam (neuro): 5/5 motor strength present throughout Deep tendon reflexes (DTR's): Right brachioradialis reflex intensity grade: 2+, Left brachioradialis reflex intensity grade: 2+, Right patellar reflex intensity grade: 2+ and Left patellar reflex intensity grade: 2+ Extrem General: No edema Assessment and Plan Assessment & Plan (1) Annual physical exam: Code(s): Z00.00 - Encounter for general adult medical examination without abnormal findings (2) ADHD: Code(s): F90.9 - Attention-deficit hyperactivity disorder, unspecified type Qualifiers: Attention deficit-hyperactivity disorder type: predominantly inattentive Qualified Code(s): F90.0 - Attention-deficit hyperactivity disorder, predominantly inattentive type Plan: Continue with present medication (3) SUDHEER (generalized anxiety disorder): Code(s): F41.1 - Generalized anxiety disorder Plan: Continue with present medication (4) GERD (gastroesophageal reflux disease): Code(s): K21.9 - Gastro-esophageal reflux disease without esophagitis Qualifiers: Esophagitis presence: esophagitis presence not specified Qualified Code(s): K21.9 - Gastro-esophageal reflux disease without esophagitis Plan: Avoid the foods that causes that usually spicy foods, tomato products, juices, coffee, soda and foods that your sensitive to. After eating do not lie down, allow 3-4 hours before in lie down. And keep the head of bed above 30 degrees to avoid the acid from going up. (5) Rectal bleed: Code(s): K62.5 - Hemorrhage of anus and rectum (6) Family history of colon cancer: Code(s): Z80.0 - Family history of malignant neoplasm of digestive organs Plan: Referral for colonoscopy as the patient has some rectal bleed but a positive family history. Orders: Orders Complete Blood Count Auto Diff Today K62.5 - Hemorrhage of anus and rectum Lipid Panel Today E78.00 - Pure hypercholesterolemia, unspecified, K62.5 - Hemorrhage of anus and rectum Thyroid Stimulating Hormone Today K62.5 - Hemorrhage of anus and rectum Vitamin B12 and Folate Today K62.5 - Hemorrhage of anus and rectum Comprehensive Met. Panel Today K62.5 - Hemorrhage of anus and rectum Free T4 (Free Thyroxine) Today K62.5 - Hemorrhage of anus and rectum Referrals Gastroenterology Referral K62.5 - Hemorrhage of anus and rectum, Z80.0 - Family history of malignant neoplasm of digestive organs Medications: New hydrocortisone 2.5% (Proctosol HC) 1 appl OH BID-QID PRN 30 grams 0RF hemorrhoids K62.5 - Hemorrhage of anus and rectum Coding Level of Care Code Est Pt Prev Care [id number]([id number]) Diagnoses Annual physical exam Z00.00 Attention deficit hyperactivity disorder (ADHD), predominantly inattentive type F90.0 Attention deficit-hyperactivity disorder type: predominantly inattentive SUDHEER (generalized anxiety disorder) F41.1 Gastroesophageal reflux disease, unspecified whether esophagitis present K21.9 Esophagitis presence: esophagitis presence not specified Rectal bleed K62.5 Family history of colon cancer Z80.0 Additional Codes PHQ-9 - 99504 - PHQ-9 Billing: ([id number])
[2024-01-16 13:10] VITALS: BP 138/70; PULSE 78; O2SAT 98; BMI 24.4
== END 2024-01-16 13:44 | disposition home or self-care (01) ==
PROVIDERS: Visit Provider Internal Medicine
DX: Z00.00 Encounter for general adult medical examination without abnormal findings (principal); F90.0 Attention-deficit hyperactivity disorder, predominantly inattentive type; F41.1 Generalized anxiety disorder; K21.9 Gastro-esophageal reflux disease without esophagitis; K62.5 Hemorrhage of anus and rectum; Z80.0 Family history of malignant neoplasm of digestive organs
CPT/HCPCS: 99395

== ENCOUNTER 2024-05-20 11:17 | Outpatient (AMB) | payer OTHER, SELFPAY ==
--- NOTE | 2024-05-20 11:45 | MHC.OFFVIS ---
Vital Signs 05/20/24 11:50 Height 6 ft 2 in Weight 188 lb BMI 24.1 BP 127/62 Blood Pressure Location Lt brachial Position Sitting Pulse 77 Intake Visit Reasons: Family Hx Colon Cancer Intake Note: Patient new consult for pre colonoscopy screening. Patient cc: change of BM habit and not emptying completely with constipation, abdominal discomfort on and off, acid reflex with burning sensation, some difficulty swallowing due to solid food getting stock on his esophagus Hall Worker Required: No Accompanied by: Self / Same As Patient Allergies No Known Allergies Allergy (Verified 05/20/24 11:44) HPI HPI Family Hx Colon Cancer: Details: 34-year-old male with past medical history of rectal bleed, mucus in his stool, GERD, ADHD, GERD history of PVC status post ablation is here today for initial consultation. Patient reports that in the past several months he has been having issues with his bowels. He sees noticeable change in his bowel movements. Patient reports that he would have frequent bowel movements with occasional mucus and blood in his stools. Sometimes it feels like he has diarrhea and sometimes he might have trouble emptying his bowels completely. Patient admits to family history of colorectal cancer in his paternal grandfather and grandmother uncle and precancerous polyps reported by his father. Patient reports epigastric pain postprandially no matter what he eats. Patient reports that sometimes eating something will help with pain and sometimes the pain happens 1 hour after eating a meal. Patient does report dyspepsia as well with dysphagia. Patient denies any odynophagia. Trouble swallowing mostly solid foods. Patient's sometimes has to swallow few times before the food goes down. No food allergies occasional seasonal allergies that he takes [id number] allergy medication and sometimes off Flonase. Patient reports that when he takes that he does not see any difference in his GERD. Denies nausea or vomiting. Symptoms will worse after eating. No worsening symptoms during the night. Patient denies any nausea or vomiting. Patient denies any weight loss. [facility] Medical History (Updated 01/16/24 @ 18:35 by Víctor Monroe MD) Annual physical exam Heart palpitations Tinea versicolor Shoulder pain Surgical History H/O adenoidectomy History of cardiac cath H/O elbow surgery History of ankle surgery Family History Paternal Uncle Mental health disorder CLL (chronic lymphocytic leukemia) Father Prostate cancer Paternal Grandfather Colon cancer Paternal Aunt Colon cancer Maternal Grandmother Heart attack Paternal Grandmother CVA (cerebral vascular accident) Social History Housing: House Alcohol intake: current Comment: 1-2 x a week 1-2 drinks Patient Tobacco Use Status: Never used Tobacco Years Smoked: marijuana- edibles e-Cigarette/Vaping Use: Never Used Second Hand Smoke Exposure: No service: No Current occupational status: employed and unemployed 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 Cognitive needs: No Hearing needs: No Vision needs: No Review of Systems Const Denies weight gain and Denies weight loss ENT Reports no additional complaints, Denies dysphagia and Denies odynophagia Card Reports no additional complaints Resp Reports no additional complaints GI Denies abdominal pain, Denies belching, Denies melena, Denies bloating, Denies change in bowel habits, Reports constipation, Denies dysphagia, Denies excessive flatus, Denies dyspepsia, Reports heartburn, Denies diarrhea, Reports loose stools, Denies nausea, Denies odynophagia and Denies vomiting Reports no additional complaints Musc Reports no additional complaints Neuro Reports no additional complaints Psych Reports no additional complaints Endo Reports no additional complaints Physical Exam Vital Signs: Last Vital Signs Pulse 77 05/20/24 11:50 BP 127/62 05/20/24 11:50 BMI result Body Mass Index 24.1 Const General: healthy appearing, no acute distress and well developed Nutritional Appearance: well nourished Orientation/consciousness: patient oriented x3 Resp Effort & Inspection: normal respiratory effort, able to speak in complete sentences, no tracheal deviation and symmetric chest movement Auscultation: clear to auscultation bilaterally Cardio Rate: regular rate GI Inspection: Yes normal to inspection and No distended Palpation (GI): Soft to palpation, not firm, nontender and No hepatosplenomegaly present Auscultation: normal bowel sounds General: Yes no CVA tenderness Back/Spine/Pelvis Back: no CVA tenderness Skin General skin exam: elasticity normal, turgor normal and dry skin Neuro General: patient oriented x3 Psych Appearance: grossly normal Mental Status: mental status grossly normal Assessment & Plan Assessment & Plan (1) Family history of colon cancer: Code(s): Z80.0 - Family history of malignant neoplasm of digestive organs Category: Medical (2) Rectal bleed: Code(s): K62.5 - Hemorrhage of anus and rectum Category: Medical (3) GERD (gastroesophageal reflux disease): Code(s): K21.9 - Gastro-esophageal reflux disease without esophagitis Category: Medical Qualifiers: Esophagitis presence: esophagitis presence not specified Qualified Code(s): K21.9 - Gastro-esophageal reflux disease without esophagitis (4) Dysphagia: Code(s): R13.10 - Dysphagia, unspecified Qualifiers: Dysphagia type: pharyngoesophageal phase Qualified Code(s): R13.14 - Dysphagia, pharyngoesophageal phase (5) Change in bowel movement: Code(s): R19.8 - Other specified symptoms and signs involving the digestive system and abdomen Plan Will rule out IBS versus IBD. Will rule out celiac. Check vitamin B12, folate and vitamin-D levels. Upper GI and small-bowel. Discussed with patient avoiding dietary triggers and late night snacking. Staying upright for minimum 3 hours after meals discussed with patient. Patient took famotidine this morning will return on Monday next week for testing. He will hold off on starting pantoprazole until his H pylori testing. May take famotidine until 24-48 hours before the testing. NPO 1 hour before testing. Patient will be booked for upper endoscopy and colonoscopy. Message sent to surgical schedulers, in the meantime I will see patient in 2 months, sooner on as needed basis. He is agreeable to this plan and verbalizes understanding of instructions. He was given the opportunity to ask questions and all questions answered. Thank you for allowing me to participate in his care Orders: Orders Transglutaminase IgA Today R10.9 - Unspecified abdominal pain C Reactive Protein Today K58.9 - Irritable bowel syndrome without diarrhea Calprotectin, Fecal Today R15.9 - Full incontinence of feces H Pylori Breath Test Today K21.9 - Gastro-esophageal reflux disease without esophagitis Transglutaminase Ab IgG Today R10.9 - Unspecified abdominal pain Vitamin B12 and Folate Today R19.7 - Diarrhea, unspecified Vitamin D 25-OH (D2 and D3) Today E55.9 - Vitamin D deficiency, unspecified FL upper GI small bowel Today K21.9 - Gastro-esophageal reflux disease without esophagitis, R13.10 - Dysphagia, unspecified Medications: New pantoprazole 20 mg PO DAILY 90 tabs 1RF Coding Level of Care Code New Pt Level 4 (07918) Diagnoses Family history of colon cancer Z80.0 Rectal bleed K62.5 Gastroesophageal reflux disease, unspecified whether esophagitis present K21.9 Esophagitis presence: esophagitis presence not specified Pharyngoesophageal dysphagia R13.14 Dysphagia type: pharyngoesophageal phase Change in bowel movement R19.8 Time Spent (min) 45 Comment 30 minutes spent with patient and additional 15 minutes spent reviewing his records
[2024-05-20 11:50] VITALS: BP 127/62; PULSE 77; BMI 24.1
== END 2024-05-20 12:34 | disposition home or self-care (01) ==
PROVIDERS: PCP Internal Medicine; Visit Provider Nurse Practitioner Family
DX: Z80.0 Family history of malignant neoplasm of digestive organs (principal); K62.5 Hemorrhage of anus and rectum; K21.9 Gastro-esophageal reflux disease without esophagitis; R13.14 Dysphagia, pharyngoesophageal phase; R19.8 Other specified symptoms and signs involving the digestive system and abdomen
CPT/HCPCS: 99204

== ENCOUNTER → 2024-05-20 11:17 | Outpatient (BNVA) | payer OTHER, SELFPAY | PROVIDERS: PCP Internal Medicine; Visit Provider Nurse Practitioner Family ==

== ENCOUNTER 2024-05-27 08:22 | Outpatient (REF) | payer OTHER, SELFPAY ==
[2024-05-27 09:16] LABS: MANUAL DIFF FLAG NO
[2024-05-27 09:27] LABS: Basophils Percent Auto 0.6 % (0-2); Eosinophils Absolute Auto 0.1 X10*3/uL (0.0-0.4); Eosinophils Percent Auto 4.1 % (0-4); Hematocrit 45.1 % (42.0-52.0); Hemoglobin 15.5 g/dl (14.0-18.0); Imm Gran Abs Auto 0.01 X10*3/uL (0.00-0.03); Imm Gran Pct Auto 0.3 % (0.0-0.4); Lymphocytes Absolute Auto 1.1 X10*3/uL (1.2-4.9); Lymphocytes Percent Auto 35.8 % (20-40); Mean Corpuscular HGB Conc 34.4 g/dl (31.0-36.0); Mean Corpuscular Hemoglobin 29.1 pg (27.0-33.0); Mean Corpuscular Volume 84.8 fL (80.0-98.0); Monocytes Absolute Auto 0.3 X10*3/uL (0.1-1.2); Monocytes Percent Auto 10.4 % (2-11); Neutrophils Absolute Auto 1.6 x10*3/uL (2.0-8.3); Neutrophils Percent Auto 48.8 % (45-73); Platelet Count 207 X10*3/uL (160-400); Red Blood Count 5.32 X10*6/uL (4.60-5.80); Red Cell Distribution Width 12.4 % (11.0-16.0); White Blood Count 3.2 X10*3/uL (4.8-10.8)
[2024-05-27 10:21] LABS: Alanine Aminotransferase 10 U/L (0-40); Albumin Level 4.5 g/dL (3.5-5.0); Alkaline Phosphatase 50 U/L (39-117); Anion Gap 11 (12-20); Aspartate Amino Transferase 12 U/L (5-37); Bilirubin Total 0.7 mg/dL (0.0-1.0); Blood Urea Nitrogen 10 mg/dL (9-16); C Reactive Protein < 0.10 mg/dL (< or = 0.50); Calcium 9.9 mg/dL (8.4-10.2); Carbon Dioxide 29 mmol/L (22-29); Chloride 106 mmol/L (96-108); Cholesterol 167 mg/dL (<200); Estimated Glomerular Filt Rate > 60; Glucose Random 106 mg/dL (60-115); HDL Cholesterol 56 mg/dL (>40); LDL Cholesterol Calculated 97 mg/dL (<100); Potassium 4.2 mmol/L (3.3-5.1); Sodium 142 mmol/L (135-145); Total Protein 7.5 g/dL (6.5-8.0); Triglycerides 74 mg/dL (<150)
[2024-05-27 10:35] LABS: Free T4 (Free Thyroxine) 1.09 ng/dL (0.71-1.85); Thyroid Stimulating Hormone 1.66 uIU/mL (0.32-4.0)
[2024-05-27 10:42] LABS: Folate 9.4 ng/mL (> or = 4.0); Vitamin B12 595 pg/mL (200-900)
[2024-05-27 10:44] LABS: Folate 9.8 ng/mL (> or = 4.0); Vitamin B12 482 pg/mL (200-900)
[2024-05-28 19:43] LABS: Transglutaminase Ab IgG <1.0 U/mL; Transglutaminase IgA <1.0 U/mL
[2024-06-01 12:53] LABS: Vitamin D 25-OH, D2 <4 ng/mL; Vitamin D 25-OH, D3 27 ng/mL; Vitamin D 25-OH, Total 27 ng/mL (30-100)
== END 2024-05-27 08:23 | disposition home or self-care (01) ==
LOC: HO.LAB 08:22
PROVIDERS: Absent Provider Internal Medicine; PCP Internal Medicine; Visit Provider Nurse Practitioner Family
DX: K62.5 Hemorrhage of anus and rectum (principal); E78.00 Pure hypercholesterolemia, unspecified; R10.9 Unspecified abdominal pain; K58.9 Irritable bowel syndrome, unspecified; R19.7 Diarrhea, unspecified; E55.9 Vitamin D deficiency, unspecified
CPT/HCPCS: 36415; 80053; 80061; 82306; 82607; 82746; 84439; 84443; 85025; 86140; 86364; 99211

== ENCOUNTER 2024-05-27 08:22 | Outpatient (AMB) | payer OTHER, SELFPAY ==
--- NOTE | 2024-05-27 08:39 | AM.OFFVISNUR ---
Intake Visit Reasons: H Pylori Intake Note: Patient presents for collection of H Pylori breath test. Patient has been fasting for 1 hour (nothing to eat, drink, no chewing gum or smoking) has not taken any antacid medication for at least 2 weeks and has no allergies to artificial sweeteners.?? Allergies No Known Allergies Allergy (Verified 05/20/24 11:44) Assessment & Plan Assessment & Plan (1) GERD (gastroesophageal reflux disease): Code(s): K21.9 - Gastro-esophageal reflux disease without esophagitis Category: Medical Qualifiers: Esophagitis presence: esophagitis presence not specified Qualified Code(s): K21.9 - Gastro-esophageal reflux disease without esophagitis Plan Patient presents for collection of H Pylori breath test. Patient has been fasting for 1 hour (nothing to eat, drink, no chewing gum or smoking) has not taken any antacid medication for at least 2 weeks and has no allergies to artificial sweeteners.???This test checks for an overgrowth of bacteria in your stomach. We all have bacteria but some may have more than others. It is treatable. if the test comes back negative there is nothing else to do. If the test result is positive we will treat you with 2 antibiotics and a medication to decrease the acid in your stomach (PPI) for 2 weeks. Two weeks after you have completed the treatment we will retest you to make sure the overgrowth has resolved. Patient Instructions: Process for specimen collection and reason for testing was explained to the patient. Specimen collection. Patient instructed to take a deep breath and then exhale into the blue bag, filling it up as much as possible. Patient instructed to drink a mixture of water and the artificial sweetener with a straw. A 15 minute wait period was observed. Patient instructed to take a deep breath and then exhale into the pink bag, filling it up as much as possible.??
== END 2024-05-27 08:42 | disposition home or self-care (01) ==
PROVIDERS: PCP Internal Medicine; Visit Provider Nurse Practitioner Family
DX: K21.9 Gastro-esophageal reflux disease without esophagitis (principal)

== ENCOUNTER 2024-05-27 16:28 | Outpatient (REF) | payer OTHER, SELFPAY ==
[2024-05-29 14:58] LABS: H Pylori Breath Test Negative (Negative)
== END 2024-05-28 16:28 | disposition home or self-care (01) ==
LOC: HO.LNP 16:28
PROVIDERS: Visit Provider Nurse Practitioner Family
DX: K21.9 Gastro-esophageal reflux disease without esophagitis (principal)
CPT/HCPCS: 83013

== ENCOUNTER 2024-07-01 07:58 | Outpatient (AMB) | payer OTHER, SELFPAY ==
[2024-07-01 07:58] VITALS: BP 136/78; PULSE 67; O2SAT 97; BMI 24.5
--- NOTE | 2024-07-01 07:58 | MHC.PC.OV ---
Vital Signs 07/01/24 07:58 Height 6 ft 2 in Weight 191 lb BMI 24.5 BP 136/78 Blood Pressure Location Lt brachial Position Sitting Pulse 67 Pulse Source Pulse Oximeter Pulse Oximetry (%) 97 Oxygen Delivery Method Room Air Intake Visit Reasons: med visit Allergies No Known Allergies Allergy (Verified 05/20/24 11:44) Tobacco use date assessed: 01/16/24 Dental Screening Dental Screen Date: 01/16/24 HPI med visit HPI Details 34-year-old male with ADHD, GERD and generalized anxiety disorder last seen by Dr. Monroe coming in for medication follow up. Has been on Adderall for the last 10 months and has been doing well in this medication feels he has good improvement. He denies any side effects at this time and has good appetite. [facility] Medical History (Updated 01/16/24 @ 18:35 by Víctor Monroe MD) Annual physical exam Heart palpitations Tinea versicolor Shoulder pain Surgical History H/O adenoidectomy History of cardiac cath H/O elbow surgery History of ankle surgery Family History Paternal Uncle Mental health disorder CLL (chronic lymphocytic leukemia) Father Prostate cancer Paternal Grandfather Colon cancer Paternal Aunt Colon cancer Maternal Grandmother Heart attack Paternal Grandmother CVA (cerebral vascular accident) Social History Housing: House Alcohol intake: current Comment: 1-2 x a week 1-2 drinks Patient Tobacco Use Status: Never used Tobacco Years Smoked: marijuana- edibles e-Cigarette/Vaping Use: Never Used Second Hand Smoke Exposure: No service: No Current occupational status: employed and unemployed 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 How often do you have a drink containing alcohol?: Never 2. How many drinks containing alcohol do you have on a typical day when you are drinking?: 1 or 2 3. How often do you have six or more drinks on one occasion?: Never Total Score: 0 SUDHEER-7 AMB Questionnaire SUDHEER-7 Date SUDHEER - 7 assessed: 01/16/24 Source: Developed by Drs. Alex Henry, Brit Diceky, Peter Mcmanus and colleagues, with an educational yousuf from [employer]. Review of Systems Const Denies fatigue, Denies fever(s), Denies lethargy, Denies poor appetite and Denies weight loss Eyes Reports no additional complaints ENT Reports no additional complaints Card Denies chest pain, Denies irregular heart rhythm and Denies dyspnea Resp Denies dyspnea GI Reports no additional complaints Endo Denies fatigue Physical exam (Primary Care) Vital Signs: Last Vital Signs Pulse 67 07/01/24 07:58 BP 136/78 07/01/24 07:58 Pulse Ox 97 07/01/24 07:58 Oxygen Delivery Method Room Air 07/01/24 07:58 BMI result Body Mass Index 24.5 Tobacco/Smoking Status: Tobacco use Status Tobacco use date assessed 01/16/24 07/01/24 08:03 Patient Tobacco Use Status Never used Tobacco 07/01/24 08:03 e-Cigarette/Vaping Use Never Used 07/01/24 08:03 Thrive Assessment: Date of Thrive Assessment Date Thrive assessed 01/16/24 07/01/24 08:03 Const General: cooperative, healthy appearing, comfortable and no acute distress Orientation/consciousness: patient oriented x3 HENMT Head: Yes normocephalic Ears: hearing grossly normal bilaterally General nose exam: Normal external nose present Eyes General: appearance normal, both eyes and all related structures Conjunctivae: conjunctivae normal Neck Neck: Yes full ROM and Yes no lymphadenopathy Resp Effort & Inspection: normal respiratory effort Auscultation: clear to auscultation bilaterally, no crackles, no rales, no rhonchi and no wheezes Cardio Rate: regular rate Rhythm: regular rhythm Skin General skin exam: no rashes or lesions noted Neuro General: patient oriented x3 Gait exam (Neuro): Normal gait present Extrem General: Yes normal to inspection, Yes full ROM and No edema Psych Affect: normal affect Attitude: cooperative Insight: Good insight present (Psych) Judgement: Good judgement present (Psych) Assessment and Plan Assessment & Plan (1) ADHD: Code(s): F90.9 - Attention-deficit hyperactivity disorder, unspecified type Qualifiers: Attention deficit-hyperactivity disorder type: predominantly inattentive Qualified Code(s): F90.0 - Attention-deficit hyperactivity disorder, predominantly inattentive type Plan: Continue with present medication. Did advise patient that if he would like to continue on Adderall he will need to show up for his three-month appointments for refills. Patient understands and agrees. Follow up in 3 months. (2) SUDHEER (generalized anxiety disorder): Code(s): F41.1 - Generalized anxiety disorder Plan: Continue with present medication Plan This note was constructed using voice recognition software. While every effort has been made to ensure accuracy and cabinet mounter, still areas may have been included sometimes these areas may affect the content or meeting of the given symptoms. Total time spent caring for the patient today was 20 minutes. This includes time spent before the visit reviewing the chart, time spent during the visit, and time spent after the visit and documentation. Coding Level of Care Code Est Pt Level 3 (84368) Diagnoses Attention deficit hyperactivity disorder (ADHD), predominantly inattentive type F90.0 Attention deficit-hyperactivity disorder type: predominantly inattentive SUDHEER (generalized anxiety disorder) F41.1
== END 2024-07-01 08:13 | disposition home or self-care (01) ==
PROVIDERS: PCP Internal Medicine
DX: F90.0 Attention-deficit hyperactivity disorder, predominantly inattentive type (principal); F41.1 Generalized anxiety disorder

== ENCOUNTER → 2024-07-01 07:58 | Outpatient (BNVA) | payer OTHER, SELFPAY | PROVIDERS: PCP Internal Medicine | DX: F90.0 Attention-deficit hyperactivity disorder, predominantly inattentive type (principal); F41.1 Generalized anxiety disorder ==

== ENCOUNTER 2024-07-10 07:56 | Outpatient (REF) | payer OTHER, SELFPAY ==
--- NOTE | ~2024-07-10 | FL_ITS ---
EXAMINATION: XR FLUOROSCOPY UPPER GI WITH AIR AND SMALL BOWEL SERIES CLINICAL INFORMATION: Reflux. Abdominal discomfort COMPARISON: None TECHNIQUE: Fluoroscopic air contrast upper GI examination was performed utilizing standard techniques with thin and thick barium and effervescent granules. Numerous spot images were obtained. FINDINGS: UPPER GI SERIES: Lateral cine images of the oropharynx and hypopharynx demonstrate normal swallow mechanism with normal epiglottic inversion and soft palate elevation. No tracheal penetration, glottic or subglottic aspiration identified. No nasopharyngeal reflux present. Hypopharyngeal structures appear normal without evidence of mass or diverticulum. There was no significant cricopharyngeal achalasia. Dual and single contrast images of the esophagus demonstrate normal caliber, contour, and mucosal pattern. No evidence of stricture, mass, or ulcerations identified. Esophageal peristalsis was normal. No evidence of hiatus hernia identified. Significant gastroesophageal reflux is seen up to the thoracic inlet. Dual contrast and single contrast images of the stomach demonstrated normal contour and mucosal pattern without evidence of mass, ulceration, or other abnormality. Contrast freely passed into the gastric antrum and duodenal bulb without delay. Single and air-contrast images of the duodenal bulb demonstrate no abnormality. The duodenal sweep has a normal appearance, course, and mucosal fold appearance. SMALL BOWEL SERIES: -Licensed Nurse Practitioner view demonstrates a normal/nonspecific bowel gas pattern. No dilated loops are seen. Moderate retained fecal material seen throughout the colon. -There are no abnormal soft tissue calcifications and there is no organomegaly. -Lung bases are clear. -Bony structures demonstrate arthropathy of the SI joints, slightly age advanced, for which autoimmune spondyloarthropathy could be a consideration. -In addition, there are abnormal protrusions of bone in the lateral femoral head neck junctions suggestive of femoral acetabular impingement. Correlate clinically. -The imaged small bowel has a normal fold pattern within the jejunum and ileum and normal caliber. No dilated loops, masses, or strictures are seen. -No inflammatory changes or fold thickening. -Contrast is observed in the right colon after 60 minutes. FLUOROSCOPY TIME: 3 minutes 39 seconds DOSE AREA PRODUCT: 2431 uGy-m2 (microgray-meter squared) FL/FL upper GI small bowel IMPRESSION: 1. Significant gastroesophageal reflux, otherwise unremarkable upper GI and small bowel series. 2. Ancillary findings as discussed in the body of the report. This procedure was performed by Denny Fischer PA-C, and supervised by Dr. Givens Electronically signed by: Kaleb Givens MD 07/10/2024 02:54 PM EDT
== END 2024-07-10 07:57 | disposition home or self-care (01) ==
LOC: HO.XRAY 07:56
PROVIDERS: PCP Internal Medicine; Visit Provider Nurse Practitioner Family
DX: R13.10 Dysphagia, unspecified (principal); K21.9 Gastro-esophageal reflux disease without esophagitis
CPT/HCPCS: 74240; 74248

== ENCOUNTER → 2024-07-10 07:56 | Outpatient (BNV) | payer OTHER, SELFPAY | PROVIDERS: PCP Internal Medicine; Visit Provider Radiology Diagnostic Radiology | DX: K21.9 Gastro-esophageal reflux disease without esophagitis (principal); R10.9 Unspecified abdominal pain | CPT/HCPCS: 74246 ==

== ENCOUNTER 2024-08-05 08:42 | Outpatient (AMB) | payer OTHER, SELFPAY ==
[2024-08-05 08:45] VITALS: BP 136/82; PULSE 62; O2SAT 100; BMI 24.8
--- NOTE | 2024-08-05 08:45 | MHC.OFFVIS ---
Vital Signs 08/05/24 08:45 Height 6 ft 2 in Weight 193 lb 9.054 oz BMI 24.8 BP 136/82 Blood Pressure Location Rt brachial Position Sitting Pulse 62 Pulse Source Pulse Oximeter Pulse Oximetry (%) 100 Oxygen Delivery Method Room Air Intake Visit Reasons: 2 month follow up Intake Note: Relevant Flags or Indicators ? Requires Silver Buffer? N Edward presents in office today for a scheduled 2 mos FUV. CC; Since last visit; labs ordered ? done with exception of stool sample. Rx ordered ? yes; pantoprazole 20 mg. Diagnostics/images ordered ? small bowel series. Relevant GI Sx as reported per pt? Reflux - more managed since starting pantoprazole. Pt states that they still feel pressure, but less burning. ? Fecal abnormalities o?? Constipation -- Pt feels that they may not be emptying fully. ? Bloating ? Hx of any recent surgeries? None Silver Buffer Required: No Allergies No Known Allergies Allergy (Verified 08/05/24 08:46) HPI HPI 2 month follow up: Details: LAST VISIT Family history of colon cancer Rectal bleed GERD (gastroesophageal reflux disease) Dysphagia Change in bowel movement Plan Will rule out IBS versus IBD. Will rule out celiac. Check vitamin B12, folate and vitamin-D levels. Upper GI and small-bowel. Discussed with patient avoiding dietary triggers and late night snacking. Staying upright for minimum 3 hours after meals discussed with patient. Patient took famotidine this morning will return on Monday next week for testing. He will hold off on starting pantoprazole until his H pylori testing. May take famotidine until 24-48 hours before the testing. NPO 1 hour before testing. Patient will be booked for upper endoscopy and colonoscopy. Message sent to surgical schedulers, in the meantime I will see patient in 2 months, sooner on as needed basis. He is agreeable to this plan and verbalizes understanding of instructions. He was given the opportunity to ask questions and all questions answered. ? Thank you for allowing me to participate in his care Orders Orders Transglutaminase IgA Today R10.9 C Reactive Protein Today K58.9 Calprotectin, Fecal Today R15.9 H Pylori Breath Test Today K21.9 Transglutaminase Ab IgG Today R10.9 Vitamin B12 and Folate Today R19.7 Vitamin D 25-OH (D2 and D3) Today E55.9 FL upper GI small bowel Today K21.9, R13.10 Medications New pantoprazole 20 mg PO DAILY 90 tabs 1RF TODAY'S VISIT Patient is here today for follow-up, to discuss lab and upper GI series results as well as discuss going for colonoscopy and upper endoscopy. Patient had normal lab results except for mildly low vitamin-D levels. Patient is currently taking supplement. Upper GI series shows significant reflux without any other GI concerns. However incidental findings of arthropathy of the SI joints, slightly age advanced, for which autoimmune spondyloarthropathy could be a consideration. In addition, there are abnormal protrusions of bone in the lateral femoral head neck junctions suggestive of femoral acetabular impingement. Patient reports that since he was put on pantoprazole his symptoms of acid reflux has suppressed significantly. He continues to have trouble moving his bowels. He moves his bowels, however does not feel like he empties them completely. Family history of CRC. Patient denies melena, hematochezia, unintentional weight loss or ribbon like stools. Patient denies dyspepsia, dysphagia or odynophagia. Patient denies any issues with anesthesia in the past. No history of sleep apnea. Not on any anticoagulation medication. [facility] Medical History Annual physical exam Heart palpitations Tinea versicolor Shoulder pain Surgical History H/O adenoidectomy History of cardiac cath H/O elbow surgery History of ankle surgery Family History Paternal Uncle Mental health disorder CLL (chronic lymphocytic leukemia) Father Prostate cancer Paternal Grandfather Colon cancer Paternal Aunt Colon cancer Maternal Grandmother Heart attack Paternal Grandmother CVA (cerebral vascular accident) Social History (Reviewed 08/05/24 @ 08:46 by Shar Delgado [facility]) Housing: House Alcohol intake: current Comment: 1-2 x a week 1-2 drinks Patient Tobacco Use Status: Never used Tobacco Years Smoked: marijuana- edibles e-Cigarette/Vaping Use: Never Used Second Hand Smoke Exposure: No service: No Current occupational status: employed and unemployed 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 Cognitive needs: No Hearing needs: No Vision needs: No Review of Systems Const Denies weight gain and Denies weight loss ENT Reports no additional complaints, Denies dysphagia and Denies odynophagia Card Reports no additional complaints Resp Reports no additional complaints GI Denies abdominal pain, Denies belching, Denies melena, Denies bloating, Denies change in bowel habits, Reports constipation, Denies dysphagia, Denies excessive flatus, Denies dyspepsia, Reports heartburn, Denies diarrhea, Denies loose stools, Denies nausea, Denies odynophagia and Denies vomiting Reports no additional complaints Musc Reports no additional complaints Neuro Reports no additional complaints Psych Reports no additional complaints Endo Reports no additional complaints Physical Exam Vital Signs: BMI result Body Mass Index 24.8 Const General: healthy appearing, no acute distress and well developed Nutritional Appearance: well nourished Orientation/consciousness: patient oriented x3 Resp Effort & Inspection: normal respiratory effort, able to speak in complete sentences, no tracheal deviation and symmetric chest movement Auscultation: clear to auscultation bilaterally Cardio Rate: regular rate GI Inspection: Yes normal to inspection and No distended Palpation (GI): Soft to palpation, not firm, nontender and No hepatosplenomegaly present Auscultation: normal bowel sounds General: Yes no CVA tenderness Back/Spine/Pelvis Back: no CVA tenderness Skin General skin exam: elasticity normal, turgor normal and dry skin Neuro General: patient oriented x3 Psych Appearance: grossly normal Mental Status: mental status grossly normal Results Reviewed Results Reviewed: Laboratory Tests 05/27/24 05/27/24 08:35 09:13 Total Bilirubin 0.7 AST 12 ALT 10 C-Reactive Protein < 0.10 Albumin 4.5 Triglycerides 74 Cholesterol 167 Vitamin B12 482 25-OH Vitamin D Total 27 L Folate 9.8 TSH 1.66 Free T4 1.09 Tiss Transglutamin IgG <1.0 Tiss Transglutamin IgA <1.0 H. pylori Breath Test Negative UPPER GI SERIES AND SMALL-BOWEL X-RAY FINDINGS: UPPER GI SERIES: Lateral cine images of the oropharynx and hypopharynx demonstrate normal swallow mechanism with normal epiglottic inversion and soft palate elevation. No tracheal penetration, glottic or subglottic aspiration identified. No nasopharyngeal reflux present. Hypopharyngeal structures appear normal without evidence of mass or diverticulum. There was no significant cricopharyngeal achalasia. Dual and single contrast images of the esophagus demonstrate normal caliber, contour, and mucosal pattern. No evidence of stricture, mass, or ulcerations identified. Esophageal peristalsis was normal. No evidence of hiatus hernia identified. Significant gastroesophageal reflux is seen up to the thoracic inlet. Dual contrast and single contrast images of the stomach demonstrated normal contour and mucosal pattern without evidence of mass, ulceration, or other abnormality. Contrast freely passed into the gastric antrum and duodenal bulb without delay. Single and air-contrast images of the duodenal bulb demonstrate no abnormality. The duodenal sweep has a normal appearance, course, and mucosal fold appearance. SMALL BOWEL SERIES: -Senior Vice President view demonstrates a normal/nonspecific bowel gas pattern. No dilated loops are seen. Moderate retained fecal material seen throughout the colon. -There are no abnormal soft tissue calcifications and there is no organomegaly. -Lung bases are clear. -Bony structures demonstrate arthropathy of the SI joints, slightly age advanced, for which autoimmune spondyloarthropathy could be a consideration. -In addition, there are abnormal protrusions of bone in the lateral femoral head neck junctions suggestive of femoral acetabular impingement. Correlate clinically. -The imaged small bowel has a normal fold pattern within the jejunum and ileum and normal caliber. No dilated loops, masses, or strictures are seen. -No inflammatory changes or fold thickening. -Contrast is observed in the right colon after 60 minutes. FLUOROSCOPY TIME: 3 minutes 39 seconds DOSE AREA PRODUCT: 2431 uGy-m2 (microgray-meter squared) FL/FL upper GI small bowel IMPRESSION: 1. Significant gastroesophageal reflux, otherwise unremarkable upper GI and small bowel series. 2. Ancillary findings as discussed in the body of the report. Assessment & Plan Assessment & Plan (1) Family history of colon cancer: Code(s): Z80.0 - Family history of malignant neoplasm of digestive organs Category: Medical (2) Rectal bleed: Code(s): K62.5 - Hemorrhage of anus and rectum Category: Medical (3) Change in bowel habits: Code(s): R19.4 - Change in bowel habit Category: Medical (4) Mucus in stool: Code(s): R19.5 - Other fecal abnormalities Category: Medical (5) GERD (gastroesophageal reflux disease): Code(s): K21.9 - Gastro-esophageal reflux disease without esophagitis Category: Medical Qualifiers: Esophagitis presence: esophagitis presence not specified Qualified Code(s): K21.9 - Gastro-esophageal reflux disease without esophagitis Plan Discussed with patient lab results as well as upper GI series. Significant reflux noted, however patient reports that pantoprazole been helpful. Patient was encouraged to avoid dietary triggers and late night snacking. Patient does admit that she used to was eating late at night. Patient will be sent for upper endoscopy to rule out gastritis, esophagitis, duodenitis, gastric or peptic ulcer, Mccray's. Patient denies any issues with anesthesia in the past. No history of sleep apnea. Not on any anticoagulation medication. Denies any cardiac or respiratory symptoms. What to expect before during and after procedure discussed with patient. Stressed the importance of good bowel prep and clear liquid diet day before procedure. I will see patient after the procedure, sooner on as needed basis. He is agreeable to this plan and verbalizes understanding of instructions. He was given the opportunity to ask questions and all questions answered. Thank you for allowing me to participate in his care Medications: New bisacodyl (Dulcolax (bisacodyl)) Start taking 2 tablet every night 7 days before the procedure and 1 day before procedure take 4 tablets at noon time followed by MiraLax prep 10 mg (2 x 5 mg) PO BEDTIME 16 tabs 0RF Z12.11 - Encounter for screening for malignant neoplasm of colon polyethylene glycol 3350 (Miralax) As directed by gastroenterology department at [facility] 238 grams PO ONCE 238 grams 0RF Z12.11 - Encounter for screening for malignant neoplasm of colon Coding Level of Care Code Est Pt Level 3 (62357) Diagnoses Family history of colon cancer Z80.0 Rectal bleed K62.5 Change in bowel habits R19.4 Mucus in stool R19.5 Gastroesophageal reflux disease, unspecified whether esophagitis present K21.9 Esophagitis presence: esophagitis presence not specified Time Spent (min) 35 Comment 20 minutes spent with patient and additional 15 minutes spent reviewing his records
== END 2024-08-05 09:14 | disposition home or self-care (01) ==
PROVIDERS: PCP Internal Medicine; Visit Provider Nurse Practitioner Family
DX: Z80.0 Family history of malignant neoplasm of digestive organs (principal); K62.5 Hemorrhage of anus and rectum; R19.4 Change in bowel habit; R19.5 Other fecal abnormalities; K21.9 Gastro-esophageal reflux disease without esophagitis
CPT/HCPCS: 99213

== ENCOUNTER → 2024-08-05 08:42 | Outpatient (BNVA) | payer OTHER, SELFPAY | PROVIDERS: PCP Internal Medicine; Visit Provider Nurse Practitioner Family ==

== ENCOUNTER 2024-10-07 07:57 | Outpatient (AMB) | payer OTHER, SELFPAY ==
--- NOTE | 2024-10-07 08:06 | A.OFFPC_ITS ---
Vital Signs 10/07/24 08:07 Height 6 ft 2 in Weight 199 lb BMI 25.5 BP 126/74 Blood Pressure Location Lt brachial Position Sitting Pulse 81 Pulse Source Pulse Oximeter Pulse Oximetry (%) 98 Oxygen Delivery Method Room Air Intake Visit Reasons: f/u medication Buckle Sewer Required: No Accompanied by: Self / Same As Patient Allergies No Known Allergies Allergy (Verified 10/07/24 08:13) Medication List - Last Reconciled 10/07/24 by Nella Shah PA-C cyclobenzaprine 10 mg PO BID PRN dextroamphetamine-amphetamine 10 mg ER (Adderall XR) 10 mg PO DAILY 28 days hydrocortisone 2.5% (Proctosol HC) 1 appl NC BID-QID PRN multivitamin 1 tab PO DAILY pantoprazole 20 mg PO DAILY Tobacco use date assessed: 01/16/24 Dental Screening Dental Screen Date: 10/07/24 Did you have a dental visit in the last 12 months?: No Did you have a dental problem in the last 6 months where you did not have access to dental care?: No Was dental information given to patient?: Patient has dentist HPI f/u medication HPI Details 34-year-old male with past medical histo ry of ADHD, GERD and generalized anxiety disorder last seen June 2024 coming in for follow up on medication.?Patient has been on Adderall for ADHD and feels good on this medication denies any side effects at this time. In review of the notes patient was seen by [facility] Gastroenterology 08/05/2024 for change in bowel habits patient had completed upper GI series which showed significant reflux improved with pantoprazole.?Advised upper endoscopy with colonoscopy for further evaluation. Patient feels the Adderall is working well however he feels the medication will wear off around 2 in the afternoon and will have difficulty concentrating throughout the day. He states his bowel habits have been about the same having intermittent constipation and has been noticing using stool softeners more often. Also mentions increased straining and will have occasional blood in stool in his previously been prescribed a hydrocortisone cream suppository for pain. He does Demos the pantoprazole has been helping with his acid reflux. [facility] Medical History Annual physical exam Heart palpitations Tinea versicolor Shoulder pain Surgical History H/O adenoidectomy History of cardiac cath H/O elbow surgery History of ankle surgery Family History Paternal Uncle Mental health disorder CLL (chronic lymphocytic leukemia) Father Prostate cancer Paternal Grandfather Colon cancer Paternal Aunt Colon cancer Maternal Grandmother Heart attack Paternal Grandmother CVA (cerebral vascular accident) Social History Housing: House Alcohol intake: current Comment: 1-2 x a week 1-2 drinks Patient Tobacco Use Status: Never used Tobacco Years Smoked: marijuana- edibles e-Cigarette/Vaping Use: Never Used Second Hand Smoke Exposure: No service: No Current occupational status: employed and unemployed 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 Alex Henry, Brit Dickey, Peter Mcmanus and colleagues, with an educational yousuf from [employer]. Review of Systems Const Denies body aches, Denies chills, Denies fever(s), Denies headache(s) and Denies poor appetite Eyes Reports no additional complaints ENT Reports dysphagia (Occasionally), Denies dizziness, Denies headache(s) and Denies odynophagia Card Denies chest pain, Denies lightheadedness and Denies dyspnea Resp Denies cough and Denies dyspnea GI Denies abdominal pain, Reports hematochezia (Occasional), Reports constipation, Reports dysphagia (Occasionally), Reports dyspepsia, Reports heartburn, Denies diarrhea, Denies nausea, Denies odynophagia and Denies vomiting Reports no additional complaints Musc Reports no additional complaints and Denies abnormal gait Skin/Breast Reports system reviewed and no additional complaints, except as documented Neuro Denies abnormal gait, Denies dizziness and Denies headache(s) Psych Reports no additional complaints Physical exam (Primary Care) Vital Signs: Last Vital Signs Pulse 81 10/07/24 08:07 BP 126/74 10/07/24 08:07 Pulse Ox 98 10/07/24 08:07 Oxygen Delivery Method Room Air 10/07/24 08:07 BMI result Body Mass Index 25.5 Tobacco/Smoking Status: Tobacco use Status Tobacco use date assessed 01/16/24 10/07/24 08:13 Patient Tobacco Use Status Never used Tobacco 10/07/24 08:13 e-Cigarette/Vaping Use Never Used 10/07/24 08:13 Thrive Assessment: Date of Thrive Assessment Date Thrive assessed 01/16/24 10/07/24 08:13 Const General: cooperative, healthy appearing, comfortable and no acute distress Orientation/consciousness: patient oriented x3 HENMT Head: Yes normocephalic Ears: hearing grossly normal bilaterally General nose exam: Normal external nose present Eyes General: appearance normal, both eyes and all related structures Conjunctivae: conjunctivae normal Neck Neck: Yes full ROM and Yes no lymphadenopathy Resp Effort & Inspection: normal respiratory effort Auscultation: clear to auscultation bilaterally, no crackles, no rales, no rhonchi and no wheezes Cardio Rate: regular rate Rhythm: regular rhythm Skin General skin exam: no rashes or lesions noted Neuro General: patient oriented x3 Gait exam (Neuro): Normal gait present Extrem General: Yes normal to inspection, Yes full ROM and No edema Psych Affect: normal affect Attitude: cooperative Insight: Good insight present (Psych) Judgement: Good judgement present (Psych) Coding Level of Care Code Est Pt Level 4 (86756) Diagnoses Family history of colon cancer Z80.0 Change in bowel habits R19.4 Gastroesophageal reflux disease, unspecified whether esophagitis present K21.9 Esophagitis presence: esophagitis presence not specified Attention deficit hyperactivity disorder (ADHD), predominantly inattentive type F90.0 Attention deficit-hyperactivity disorder type: predominantly inattentive SUDHEER (generalized anxiety disorder) F41.1 Assessment & Plan Assessment & Plan (1) Family history of colon cancer: Code(s): Z80.0 - Family history of malignant neoplasm of digestive organs Category: Medical Plan: Patient seen by Gastroenterology who recommended endoscopy with colonoscopy. (2) Change in bowel habits: Code(s): R19.4 - Change in bowel habit Category: Medical Plan: Patient seen by GI who recommended colonoscopy with endoscopy for further evaluation. Prescription sent for hydrocortisone suppositories (3) GERD (gastroesophageal reflux disease): Code(s): K21.9 - Gastro-esophageal reflux disease without esophagitis Category: Medical Qualifiers: Esophagitis presence: esophagitis presence not specified Qualified Code(s): K21.9 - Gastro-esophageal reflux disease without esophagitis Plan: Avoid trigger foods such as citrus, tomato products, soda, caffeine, spicy foods and other foods that may be irritating to your stomach. Avoid laying flat 3-4 hours after eating and elevate the head of the bed 30 degrees to prevent acid from moving into the esophagus. Continue on pantoprazole. Recently had upper GI series that was reviewed with GI specialist and advised to undergo endoscopy. (4) ADHD: Code(s): F90.9 - Attention-deficit hyperactivity disorder, unspecified type Category: Medical Qualifiers: Attention deficit-hyperactivity disorder type: predominantly inattentive Qualified Code(s): F90.0 - Attention-deficit hyperactivity disorder, predominantly inattentive type Plan: Presently on Adderall 10 mg daily feels the medication will typically wear off around wanted to do in the afternoon. This medication should last 10-12 hours in the system and we will increase to Adderall 20 mg daily. We will follow up in 3 months for refill. (5) SUDHEER (generalized anxiety disorder): Code(s): F41.1 - Generalized anxiety disorder Category: Medical Plan: Not currently on medical management declines referral to counseling at this time or medication. Plan This note was constructed using voice recognition software. While every effort has been made to ensure accuracy and lacquer shader, still areas may have been included sometimes these areas may affect the content or meeting of the given symptoms. Total time spent caring for the patient today was 20 minutes. This includes time spent before the visit reviewing the chart, time spent during the visit, and time spent after the visit and documentation. Medications: Refilled hydrocortisone 2.5% (Proctosol HC) 1 appl NC BID-QID PRN 30 grams 0RF hemorrhoids K62.5 - Hemorrhage of anus and rectum
[2024-10-07 08:07] VITALS: BP 126/74; PULSE 81; O2SAT 98; BMI 25.5
== END 2024-10-07 08:33 | disposition home or self-care (01) ==
LOC: HO.HMCH 07:57
PROVIDERS: PCP Internal Medicine
DX: Z80.0 Family history of malignant neoplasm of digestive organs (principal); R19.4 Change in bowel habit; K21.9 Gastro-esophageal reflux disease without esophagitis; F90.0 Attention-deficit hyperactivity disorder, predominantly inattentive type; F41.1 Generalized anxiety disorder

== ENCOUNTER → 2024-10-07 07:57 | Outpatient (BNVA) | payer OTHER, SELFPAY | PROVIDERS: PCP Internal Medicine ==

== ENCOUNTER 2024-12-30 08:37 | Day surgery (SDC) | payer OTHER, SELFPAY ==
[2024-12-26 12:27] VITALS: BMI 24.8
--- NOTE | 2024-12-27 09:39 | HO.ANESPROP2 ---
Documented by User: Amena Velazco NP 12/27/24 09:40 HPI - Anesthesia Eval Consult details Narrative: 34yo M for Upper Endoscopy and Colonoscopy hx SVT s/p ablation 2011 [facility] Active Problems Active Problems: All Active Problems Hip pain (Acute) Family history of colon cancer (Acute) Rectal bleed (Acute) Mucus in stool (Acute) Change in bowel habits (Acute) COVID-19 virus infection (Acute) Annual physical exam (Acute) Thoracic back pain (Acute) GERD (gastroesophageal reflux disease) (Acute) Viral wart on finger (Acute) ADHD (Acute) SUDHEER (generalized anxiety disorder) (Acute) Leukopenia (Acute) Urine malodor (Acute) Screening-pulmonary TB (Acute) H/O paroxysmal supraventricular tachycardia (Acute) Shoulder dislocation (Acute) Past Medical History Medical History Annual physical exam Heart palpitations Tinea versicolor Shoulder pain Family History Family History Paternal Uncle Mental health disorder CLL (chronic lymphocytic leukemia) Father Prostate cancer Paternal Grandfather Colon cancer Paternal Aunt Colon cancer Maternal Grandmother Heart attack Paternal Grandmother CVA (cerebral vascular accident) Surgical History Surgical History H/O adenoidectomy History of cardiac cath H/O elbow surgery History of ankle surgery Social History Social History Housing: House Alcohol intake: current Comment: 1-2 x a week 1-2 drinks Patient Tobacco Use Status: Never used Tobacco Years Smoked: marijuana- edibles e-Cigarette/Vaping Use: Never Used Second Hand Smoke Exposure: No Advance Directives: No Advance Directives Information Provided: Yes service: No Current occupational status: employed and unemployed 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 occupational exposures/hazards: No Cognitive needs: No Hearing needs: No Vision needs: No Meds Allergies Allergy/AdvReac Type Severity Reaction Status Date / Time No Known Allergies Allergy Verified 10/07/24 08:13 Home Medications ?Medication ?Instructions ?Recorded ?Confirmed ?Last Taken ?Type multivitamin 1 tab PO DAILY 01/16/24 10/07/24 Unknown History cyclobenzaprine 10 mg tablet 10 mg PO BID PRN 10/07/24 10/07/24 Unknown History Exam Height,Weight and Vital Signs: Height 6 ft 2 in Weight 87.543 kg Assessment and Plan Assessment Anesthesia Assessment: Chart Reviewed Documented by User: Brianna Pham MD 12/30/24 09:09 [facility] Past Medical History Medical History Annual physical exam Heart palpitations Tinea versicolor Shoulder pain Family History Family History Paternal Uncle Mental health disorder CLL (chronic lymphocytic leukemia) Father Prostate cancer Paternal Grandfather Colon cancer Paternal Aunt Colon cancer Maternal Grandmother Heart attack Paternal Grandmother CVA (cerebral vascular accident) Family history of problems with anesthesia: No Surgical History Surgical History H/O adenoidectomy History of cardiac cath H/O elbow surgery History of ankle surgery History of Problems with Anesthesia: No Social History Social History Housing: House Alcohol intake: current Comment: 1-2 x a week 1-2 drinks Patient Tobacco Use Status: Never used Tobacco Years Smoked: marijuana- edibles e-Cigarette/Vaping Use: Never Used Second Hand Smoke Exposure: No Advance Directives: No Advance Directives Information Provided: Yes service: No Current occupational status: employed and unemployed 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 occupational exposures/hazards: No Cognitive needs: No Hearing needs: No Vision needs: No Meds Allergies Allergy/AdvReac Type Severity Reaction Status Date / Time No Known Allergies Allergy Verified 10/07/24 08:13 Home Medications ?Medication ?Instructions ?Recorded ?Confirmed ?Last Taken ?Type multivitamin 1 tab PO DAILY 01/16/24 10/07/24 Unknown History cyclobenzaprine 10 mg tablet 10 mg PO BID PRN 10/07/24 10/07/24 Unknown History Exam Airway Mallampati Class: I (cap top left) TM Dist: >3cm Neck ROM: Full Heart: rrr Lungs: cta Assessment and Plan Assessment Anesthesia Assessment: Anesthesia Plan Discussed Final Anesthetic Review Family History of Problems with Anesthesia: No History of Problems with Anesthesia: No NPO: Yes ASA Class: II Final Preanesthetic Review: No Changes in Pt Med Stat, Meds/Allgs Chart Reviewed and Consent Obtained/Reviewed Patient Risk: Intermediate Procedure Risk: Low Anesthetic Plan Anesthetic Plan: MAC: Disposition: Standard PACU
[2024-12-30 09:09] VITALS: BP 122/76; PULSE 94; RESP 16; TEMP 36.5; O2SAT 99; BMI 25.0
--- NOTE | 2024-12-30 09:17 | MHC.SHP ---
Pre-Procedural Eval Section A - 24 Hr Update-Section A only Date of Service: 12/30/24 The patient has been examined within 24 hours of the surgical procedure. The History & Physical has been completed within 30 days and I have reviewed it.: No Section B - Complete if H&P > 30 days Chief Complaint: Dysphagia, pharyngoesophageal phase,gerd, const Relevant Family History (Specify if Yes): Yes Relevant Social History: None Present Medications: see Short Stay Collaborative assessment Medical History: Significant History (Heart palpitations Tinea versicolor Shoulder pain) History of Previous Operations: Relevant previous surgery/procedure and date(s) (H/O adenoidectomy History of cardiac cath H/O elbow surgery History of ankle surgery) Allergies: Allergies Allergy/AdvReac Type Severity Reaction Status Date / Time No Known Allergies Allergy Verified 10/07/24 08:13 Review of Systems Sugical H&P ROS: Negative: Constitution, Cardiovascular, Respiratory and Gastrointestinal Exam Surgical H&P Exam: Normal: Heart, Normal: Lungs, Normal: Extremities and Normal: Abdomen Plan Diagnosis/Plan: Unchanged I have reviewed the history and physical and performed a pertinent physical examination on my patient. No changes have occurred unless specified. Time Spent With Patient Time: Total time managing care of this patient today ____ minutes.
--- NOTE | 2024-12-30 10:02 | HO.OPN-COLON ---
Colonoscopy Operative Note Operative Note Date of Service: 12/30/24 Narrative: FLEXIBLE TRANSORAL UPPER GASTROINTESTINAL ENDOSCOPY WITH BIOPSIES AND ESOPHAGEAL BALLOON DILATION AND COLONOSCOPY TILL CECUM WITH BIOPSIES AND SNARE POLYPECTOMY Pre-op diagnosis: GERD, Dysphagia, Constipation Post-op diagnosis: GERD, Dysphagia, Gastritis, Colon polyps, ? Endoscopist:? Nolan Vee MD Anesthesia:?MAC UPPER ENDOSCOPY Consent: Indications for the procedure and potential complications of bleeding, perforation, reaction to medications and missed diagnosis were discussed with the patient and informed consent was obtained. Instrument: Olympus GIF H 190 mid size upper endoscope Monitoring: Vital signs and clinical assessment, continuous EKG monitoring, Pulse oximetry, Carbon Dioxide monitoring and blood pressure monitoring were done throughout the procedure. Procedure: The patient was placed in the left lateral decubitis position and pre-procedure medications were administered and a bite block was placed. The endoscope was inserted into the mouth and advanced under direct vision to the third part of duodenum. A careful inspection was made as the upper endoscope was withdrawn including a retroflexed examination of the proximal stomach; Findings and interventions are described below. Findings: Larynx: Normal Esophagus: GE junction at 42 cms. No stricture or ring. Normal mucosa without esophagitis or Mccray's. Empiric balloon dilation of distal esophagus was performed with a 20 mm CRE balloon x 60 seconds Biopsies were obtained from proximal, mid and distal esophagus to check for EOE Stomach: Moderate gastric antral erythema - biopsies were obtained from the antrum. Grade 2 flap valve on retroflexed examination of the cardia. Duodenum: Normal bulb and descending duodenum Biopsies were obtained from descending duodenum to check for celiac sprue Intervention: Biopsies as noted above COLONOSCOPY PROCEDURE NOTE Instrument: Olympus CF H 190 L variable stiffness adult colonoscope Monitoring: Vital signs and clinical assessment, intermittent blood pressure monitoring, continuous EKG monitoring, Pulse oximetry and Carbon Dioxide monitoring were done throughout the procedure. Please see anesthesia flowsheet. Colon withdrawl time was 20 minutes. Procedure: The patient was placed in the left lateral decubitis position and pre-procedure medications were administered. After a digital rectal examination of the ano-rectum, the video colonoscope was inserted into the rectum and advanced through the colon to the cecum. The colonoscope was slowly withdrawn in a retrograde panoramic fashion and the colon mucosa was carefully examined including a retroflexed view of the rectum. Findings and interventions are described below. Procedure Difficulty: without difficulty - colon was long and tortuous and there was spasm and some loop formation Findings: Terminal Ileum: Multiple attempts to intubate the TI were unsuccessful Cecum: a 3-4 mm diminutive appearing polyp - removed with a cold biopsy Ascending Colon: A 7-8 mm hyperplastic appearing polyp at the hepatic flexure - removed with a cold snare Transverse Colon: A 7-8 mm hyperplastic appearing polyp - removed with a cold snare Descending Colon: Normal Sigmoid Colon: Normal Rectum: Normal Ano-rectum: Normal Colon preparation: Excellent after some irrigation. [place] Bowel Preparation Scale Right colon; 3 Transverse colon: 3 Left colon; 3 (0 = Unprepared colon segment with mucosa not seen due to solid stool that cannot be cleared. 1 = Portion of mucosa of the colon segment seen, but other areas of the colon segment not well seen due to staining, residual stool and/or opaque liquid. 2 = Minor amount of residual staining, small fragments of stool and/or opaque liquid, but mucosa of colon segment seen well. 3 = Entire mucosa of colon segment seen well with no residual staining, small fragments of stool or opaque liquid) Impression and Post Procedure Diagnosis: Endoscopy Findings: ESOPHAGUS: GE junction at 42 cms. No stricture or ring. Empiric balloon dilation of distal esophagus was performed with a 20 mm CRE balloon x 60 seconds STOMACH: Gastritis DUODENUM: Normal - biopsies obtained to check for celiac sprue Colonoscopy Findings: Three small polyps were removed Random biopsies were obtained from right and left colon to check for microscopic colitis Plan: Pt to schedule a FU appointment with Marie Maurice NP Repeat Colonoscopy in 5 years if polyps are adenomatous and 10 year if polyps are hyperplastic. Above findings were reviewed with the patient and relevant handouts were given and the discharge area. BIOPSIES SHOWED: A. Small bowel, biopsy: Duodenal mucosa within normal limits. B. Stomach, antrum, biopsy: Antral-type mucosa with mild chronic inactive inflammation; no Helicobacter organisms seen. C. Esophagus, distal, biopsy: Squamous epithelium within normal limits; no inflammation seen. D. Esophagus, mid, biopsy: Squamous epithelium within normal limits; no inflammation seen. E. Esophagus, proximal, biopsy: Squamous epithelium within normal limits; no inflammation seen. F. Colon, hepatic flexure, polypectomy: Sessile serrated lesion/polyp; negative for cytologic dysplasia. G. Cecum, polypectomy: Colonic mucosa with small lymphoid aggregates and mild surface hyperplastic changes. H. Colon, right, biopsy: Colonic mucosa within normal limits. I. Colon, transverse, polypectomy: Hyperplastic mucosal polyp. J. Colon, left, biopsy: Colonic mucosa within normal limits. COMMENT: Diagnostic features of celiac disease, eosinophilic esophagitis or microscopic colitis are not seen Letter sent advising repeat colonoscopy in 5 years. Patient was placed on the colonoscopy recall list
[2024-12-30 10:53] VITALS: BP 119/77; PULSE 67; RESP 16; TEMP 36.3; O2SAT 98
[2024-12-30 11:11] VITALS: BP 120/67; PULSE 63; RESP 16; TEMP 36.3; O2SAT 100
== END 2024-12-30 11:32 | disposition home or self-care (01) ==
PROVIDERS: PCP Internal Medicine; Visit Provider Internal Medicine Gastroenterology
PROC: (CPT 45385; principal; 2024-12-30 10:00)
DX: R19.4 Change in bowel habit (principal); Z80.0 Family history of malignant neoplasm of digestive organs; K62.5 Hemorrhage of anus and rectum; K58.9 Irritable bowel syndrome, unspecified; D12.3 Benign neoplasm of transverse colon; K63.5 Polyp of colon; K57.30 Diverticulosis of large intestine without perforation or abscess without bleeding; K64.8 Other hemorrhoids; R13.14 Dysphagia, pharyngoesophageal phase; K21.9 Gastro-esophageal reflux disease without esophagitis; K29.50 Unspecified chronic gastritis without bleeding
CPT/HCPCS: 45385; 45380; 43249; 43239; 88305; 88313; 88342; C1726; J2003; J2250; J2704

== ENCOUNTER → 2024-12-30 08:37 | Outpatient (BNV) | payer OTHER, SELFPAY | PROVIDERS: PCP Internal Medicine; Visit Provider Internal Medicine Gastroenterology | DX: K21.9 Gastro-esophageal reflux disease without esophagitis (principal); R13.10 Dysphagia, unspecified; K29.70 Gastritis, unspecified, without bleeding; K59.00 Constipation, unspecified; D12.3 Benign neoplasm of transverse colon; K63.5 Polyp of colon | CPT/HCPCS: 43239; 43249; 45380; 45385 ==

== ENCOUNTER 2025-01-06 07:59 | Outpatient (AMB) | payer OTHER, SELFPAY ==
[2025-01-06 08:21] VITALS: BP 126/70; PULSE 78; O2SAT 96; BMI 25.2
--- NOTE | 2025-01-06 08:21 | A.OFFPC_ITS ---
Vital Signs 01/06/25 08:21 Height 6 ft 2 in Weight 196 lb BMI 25.2 BP 126/70 Blood Pressure Location Lt brachial Position Sitting Pulse 78 Pulse Source Pulse Oximeter Pulse Oximetry (%) 96 Oxygen Delivery Method Room Air Intake Visit Reasons: Follow up ADHD Emt Required: No Accompanied by: Self / Same As Patient Allergies No Known Allergies Allergy (Verified 01/06/25 08:25) Medication List - Last Reconciled 01/06/25 by Nella Shah PA-C cyclobenzaprine 10 mg PO BID PRN dextroamphetamine-amphetamine 20 mg ER (Adderall XR) 20 mg PO DAILY hydrocortisone 2.5% (Proctosol HC) 1 appl TX BID-QID PRN multivitamin 1 tab PO DAILY pantoprazole 20 mg PO DAILY Tobacco use date assessed: 01/06/25 Dental Screening Dental Screen Date: 01/06/25 Did you have a dental visit in the last 12 months?: No Did you have a dental problem in the last 6 months where you did not have access to dental care?: No Was dental information given to patient?: Patient has dentist HPI Follow up ADHD HPI Details 34-year-old male with past medical histo ry of ADHD, GERD and generalized anxiety disorder last seen September 2024 coming in for follow up on medication.? In review of the notes, patient recently had colonoscopy done 12/2024 advised to follow up in 5 years.? The patient is a 35-year-old male presenting with a follow-up for medication and gastrointestinal procedures. Reports adequate control of ADHD symptoms with current medication, acknowledging better efficacy with the newer dosing regimen. Recently underwent colonoscopy; results of the procedure were as anticipated, with recommendations to follow up for continued monitoring. Diagnosed with GERD and gastritis, with intervention for esophageal stricture via balloon dilation. Awaiting complete documentation of findings from this procedure. Last comprehensive blood work was nearly a year ago with plans for scheduled fasting blood tests before the upcoming wellness evaluation next month. [facility] Medical History Annual physical exam Heart palpitations Tinea versicolor Shoulder pain Surgical History H/O adenoidectomy History of cardiac cath H/O elbow surgery History of ankle surgery Family History Paternal Uncle Mental health disorder CLL (chronic lymphocytic leukemia) Father Prostate cancer Paternal Grandfather Colon cancer Paternal Aunt Colon cancer Maternal Grandmother Heart attack Paternal Grandmother CVA (cerebral vascular accident) Social History Housing: House Alcohol intake: current Comment: 1-2 x a week 1-2 drinks Patient Tobacco Use Status: Never used Tobacco Years Smoked: marijuana- edibles e-Cigarette/Vaping Use: Never Used Second Hand Smoke Exposure: No service: No Current occupational status: employed and unemployed Current occupation: [employer] - Right Handed Current occupational exposures/hazards: No Cognitive needs: No Hearing needs: No Vision needs: No Questionnaire PHQ-9 Over the last 2 weeks, how often have you been bothered by any of the following problems? 1. Little interest or pleasure in doing things: not at all 2. Feeling down, depressed, or hopeless: not at all 3. Trouble falling or staying asleep, or sleeping too much: not at all 4. Feeling tired or having little energy: not at all 5. Poor appetite or overeating: not at all 6. Feeling bad about yourself - or that you are a failure or have let yourself or your family down: not at all 7. Trouble concentrating on things, such as reading the newspaper or watching television: not at all 8. Moving or speaking so slowly that other people could have noticed. Or the opposite - being so fidgety or restless that you have been moving around a lot more than usual: not at all 9. Thoughts that you would be better off or of hurting yourself in some way: not at all Total score: 0 Depression Screening Interpretation: Negative Depression Screening Done: Yes Source: Developed by Drs. Alex Henry, Brit Dickey, Peter Mcmanus and colleagues, with an educational yousuf from [employer]. Thrive Questionnaire Date Thrive assessed: 01/06/25 I am a: Patient What is your living situation today?: I have a steady place to live Within the past 12 months, did the food you bought not last and you didn't have the money to get more?: Never true Within the past 12 months, did you worry whether your food would run out before you got money to buy more?: Never true Do you have trouble paying for medicines?: No Do you have trouble getting transportation to medical appointments?: No Do you have trouble paying your heating and electricity bill?: No Do you have trouble taking care of your child, family member or friend?: No Do you have trouble with day-to-day activities such as bathing, preparing meals, shopping, managing finances, etc.?: No Are you currently unemployed and looking for a job?: No Are you interested in more education?: No Please select the resources that you would like help with: None Currently or been in a relationship where the following occur: No concerns reported THRIVE Score: 0 AUDIT C Alcohol Use Questionnaire (AUDIT-C) 1. How often do you have a drink containing alcohol?: Never Total Score: 0 SUDHEER-7 AMB Questionnaire SUDHEER-7 Date SUDHEER - 7 assessed: 01/06/25 Feeling nervous, anxious, or on edge: 0 = Not at all Not being able to stop or control worryin = Not at all Worrying too much about different things: 0 = Not at all Trouble relaxin = Not at all Being so restless that it is hard to sit still: 0 = Not at all Becoming easily annoyed or irritable: 0 = Not at all Feeling afraid as if something awful might happen: 0 = Not at all Total SUDHEER-7 score (0-4 normal; 5-9 mild; 10-14 moderate; 15-21 severe): 0 Source: Developed by Drs. Alex Henry, Brit Dickey, Peter Mcmanus and colleagues, with an educational yousuf from [employer]. Review of Systems Const Denies body aches, Denies chills, Denies fever(s) and Denies poor appetite Eyes Reports no additional complaints ENT Reports no additional complaints Card Denies chest pain, Denies lightheadedness and Denies dyspnea Resp Denies dyspnea Skin/Breast Reports system reviewed and no additional complaints, except as documented Psych Reports no additional complaints Physical exam (Primary Care) BMI result Body Mass Index 25.2 Tobacco/Smoking Status: Tobacco use Status Tobacco use date assessed 01/16/24 10/07/24 08:30 Patient Tobacco Use Status Never used Tobacco 12/30/24 10:55 e-Cigarette/Vaping Use Never Used 10/07/24 08:30 Depression Screening Interpretation: Negative Thrive Assessment: Date of Thrive Assessment Date Thrive assessed 01/16/24 10/07/24 08:30 Currently or been in a relationship where the following occur: No concerns reported Const General: cooperative, healthy appearing, comfortable and no acute distress Orientation/consciousness: patient oriented x3 HENMT Head: Yes normocephalic Ears: hearing grossly normal bilaterally General nose exam: Normal external nose present Eyes General: appearance normal, both eyes and all related structures Conjunctivae: conjunctivae normal Neck Neck: Yes full ROM and Yes no lymphadenopathy Resp Effort & Inspection: normal respiratory effort Auscultation: clear to auscultation bilaterally, no crackles, no rales, no rhonchi and no wheezes Cardio Rate: regular rate Rhythm: regular rhythm Skin General skin exam: no rashes or lesions noted Neuro General: patient oriented x3 Gait exam (Neuro): Normal gait present Extrem General: Yes normal to inspection, Yes full ROM and No edema Psych Affect: normal affect Attitude: cooperative Insight: Good insight present (Psych) Judgement: Good judgement present (Psych) Coding Level of Care Code Est Pt Level 3 (72947) Diagnoses Family history of colon cancer Z80.0 Gastroesophageal reflux disease, unspecified whether esophagitis present K21.9 Esophagitis presence: esophagitis presence not specified Attention deficit hyperactivity disorder (ADHD), predominantly inattentive type F90.0 Attention deficit-hyperactivity disorder type: predominantly inattentive SUDHEER (generalized anxiety disorder) F41.1 Assessment & Plan Assessment & Plan (1) Family history of colon cancer: Code(s): Z80.0 - Family history of malignant neoplasm of digestive organs Category: Medical Plan: patient recently completed endoscopy with colonoscopy biopsies were taken awaiting results at this time. Advised patient to reach out to GI to schedule follow up appointment and repeat colonoscopy in 5 years. (2) GERD (gastroesophageal reflux disease): Code(s): K21.9 - Gastro-esophageal reflux disease without esophagitis Category: Medical Qualifiers: Esophagitis presence: esophagitis presence not specified Qualified Code(s): K21.9 - Gastro-esophageal reflux disease without esophagitis Plan: Avoid trigger foods such as citrus, tomato products, soda, caffeine, spicy foods and other foods that may be irritating to your stomach. Avoid laying flat 3-4 hours after eating and elevate the head of the bed 30 degrees to prevent acid from moving into the esophagus. Continue on Pantoprazole (3) ADHD: Code(s): F90.9 - Attention-deficit hyperactivity disorder, unspecified type Category: Medical Qualifiers: Attention deficit-hyperactivity disorder type: predominantly inattentive Qualified Code(s): F90.0 - Attention-deficit hyperactivity disorder, predominantly inattentive type Plan: continue on Adderall 20 mg feels this dose is better managing his ADHD and denies having drop off in the middle of the day any longer. Continue on this current dose and follow up in 3 months. (4) SUDHEER (generalized anxiety disorder): Code(s): F41.1 - Generalized anxiety disorder Category: Medical Plan: Feels well managed without medication at this time Plan This note was constructed using voice recognition software. While every effort has been made to ensure accuracy and shopper marketing manager, still areas may have been included sometimes these areas may affect the content or meeting of the given symptoms. Total time spent caring for the patient today was Twenty minutes. This includes time spent before the visit reviewing the chart, time spent during the visit, and time spent after the visit and documentation. Patient was informed and verbally consented to the use of an ambient scribe for clinic note documentation during this visit.
== END 2025-01-06 08:37 | disposition home or self-care (01) ==
LOC: HO.HMCH 08:00
PROVIDERS: PCP Internal Medicine
DX: Z80.0 Family history of malignant neoplasm of digestive organs (principal); K21.9 Gastro-esophageal reflux disease without esophagitis; F90.0 Attention-deficit hyperactivity disorder, predominantly inattentive type; F41.1 Generalized anxiety disorder

== ENCOUNTER → 2025-01-06 07:59 | Outpatient (BNVA) | payer OTHER, SELFPAY | PROVIDERS: PCP Internal Medicine ==

== ENCOUNTER 2025-02-03 09:01 | Outpatient (AMB) | payer OTHER, SELFPAY ==
--- NOTE | 2025-02-03 09:04 | MHC.PC.OV ---
Vital Signs 02/03/25 09:05 Height 6 ft 2 in Weight 192 lb BMI 24.6 BP 108/62 Blood Pressure Location Lt brachial Position Sitting Pulse 60 Pulse Source Pulse Oximeter Pulse Oximetry (%) 98 Oxygen Delivery Method Room Air Intake Visit Reasons: Annual Exam Allergies No Known Allergies Allergy (Verified 02/03/25 09:05) Medication List - Last Reconciled 02/03/25 by Víctor Monroe MD cyclobenzaprine 10 mg PO BID PRN dextroamphetamine-amphetamine 20 mg ER (Adderall XR) 20 mg PO DAILY hydrocortisone 2.5% (Proctosol HC) 1 appl NC BID-QID PRN multivitamin 1 tab PO DAILY pantoprazole 20 mg PO DAILY Tobacco use date assessed: 02/03/25 Dental Screening Dental Screen Date: 02/03/25 Did you have a dental visit in the last 12 months?: No Did you have a dental problem in the last 6 months where you did not have access to dental care?: No Was dental information given to patient?: Patient has dentist [facility] Medical History (Updated 02/03/25 @ 09:15 by Víctor Monroe MD) Screening-pulmonary TB Urine malodor Viral wart on finger Thoracic back pain COVID-19 virus infection Change in bowel habits Mucus in stool Rectal bleed Hip pain Screening for hypercholesterolemia Annual physical exam Heart palpitations Tinea versicolor Shoulder pain Surgical History H/O adenoidectomy History of cardiac cath H/O elbow surgery History of ankle surgery Family History Paternal Uncle Mental health disorder CLL (chronic lymphocytic leukemia) Father Prostate cancer Paternal Grandfather Colon cancer Paternal Aunt Colon cancer Maternal Grandmother Heart attack Paternal Grandmother CVA (cerebral vascular accident) Social History Housing: House Alcohol intake: current Comment: 1-2 x a week 1-2 drinks Patient Tobacco Use Status: Never used Tobacco Tobacco use type: Cigarette Years Smoked: marijuana- edibles e-Cigarette/Vaping Use: Never Used Second Hand Smoke Exposure: No service: No Current occupational status: employed and unemployed Current occupation: [employer] - Right Handed Current occupational exposures/hazards: No Cognitive needs: No Hearing needs: No Vision needs: Yes Questionnaire PHQ-9 Over the last 2 weeks, how often have you been bothered by any of the following problems? 1. Little interest or pleasure in doing things: not at all 2. Feeling down, depressed, or hopeless: not at all 3. Trouble falling or staying asleep, or sleeping too much: not at all 4. Feeling tired or having little energy: not at all 5. Poor appetite or overeating: not at all 6. Feeling bad about yourself - or that you are a failure or have let yourself or your family down: not at all 7. Trouble concentrating on things, such as reading the newspaper or watching television: not at all 8. Moving or speaking so slowly that other people could have noticed. Or the opposite - being so fidgety or restless that you have been moving around a lot more than usual: not at all 9. Thoughts that you would be better off or of hurting yourself in some way: not at all Total score: 0 Depression Screening Interpretation: Negative Depression Screening Done: Yes 74071 - PHQ-9 Billing: Yes Source: Developed by Drs. Alex Henry, Brit Dickey, Peter Mcmanus and colleagues, with an educational yousuf from [employer]. Thrive Questionnaire Date Thrive assessed: 02/01/25 I am a: Patient What is your living situation today?: I have a steady place to live Within the past 12 months, did the food you bought not last and you didn't have the money to get more?: Never true Within the past 12 months, did you worry whether your food would run out before you got money to buy more?: Never true Do you have trouble paying for medicines?: No Do you have trouble getting transportation to medical appointments?: No Do you have trouble paying your heating and electricity bill?: No Do you have trouble taking care of your child, family member or friend?: No Do you have trouble with day-to-day activities such as bathing, preparing meals, shopping, managing finances, etc.?: No Are you currently unemployed and looking for a job?: No Are you interested in more education?: No Please select the resources that you would like help with: None Currently or been in a relationship where the following occur: No concerns reported THRIVE Score: 0 AUDIT C Alcohol Use Questionnaire (AUDIT-C) 1. How often do you have a drink containing alcohol?: 2-4 times a month 2. How many drinks containing alcohol do you have on a typical day when you are drinking?: 1 or 2 3. How often do you have six or more drinks on one occasion?: Never Total Score: 2 SUDHEER-7 AMB Questionnaire SUDHEER-7 Date SUDHEER - 7 assessed: 01/06/25 Feeling nervous, anxious, or on edge: 1 = Several days Not being able to stop or control worryin = Not at all Worrying too much about different things: 0 = Not at all Trouble relaxin = Several days Being so restless that it is hard to sit still: 0 = Not at all Becoming easily annoyed or irritable: 2 = More than half the days Feeling afraid as if something awful might happen: 0 = Not at all Total SUDHEER-7 score (0-4 normal; 5-9 mild; 10-14 moderate; 15-21 severe): 4 Source: Developed by Drs. Alex Henry, Brit Dickey, Peter Mcmanus and colleagues, with an educational yousuf from [employer]. SUDHEER-7 Assessment Billing SUDHEER-7 Assessment Tool: SUDHEER-7 Assessment 72950 Review of Systems Const Denies poor appetite and Denies weakness Eyes Denies no additional complaints ENT Reports Normal hearing present, Denies dizziness, Denies nasal congestion, Denies tinnitus and Denies sore throat Card Denies chest pain, Denies syncope, Denies rapid heart rate and Denies dyspnea Resp Denies cough and Denies dyspnea GI Denies change in stool character, Reports constipation, Denies diarrhea, Denies nausea and Denies vomiting Denies dysuria and Denies urinary frequency Neuro Reports Normal hearing present, Denies confusion, Denies dizziness, Denies syncope and Denies weakness Psych Denies confusion Physical exam (Primary Care) Vital Signs: Last Vital Signs Pulse 60 02/03/25 09:05 BP 108/62 02/03/25 09:05 Pulse Ox 98 02/03/25 09:05 Oxygen Delivery Method Room Air 02/03/25 09:05 BMI result Body Mass Index 24.6 Tobacco/Smoking Status: Tobacco use Status Tobacco use date assessed 02/03/25 02/03/25 09:08 Patient Tobacco Use Status Never used Tobacco 02/03/25 09:08 Tobacco use type Cigarette 02/03/25 09:08 e-Cigarette/Vaping Use Never Used 02/03/25 09:08 PHQ-9: PHQ-9 Score PHQ-9: Total score 0 02/03/25 09:08 Depression Screening Interpretation: Negative Thrive Assessment: Date of Thrive Assessment Date Thrive assessed 02/01/25 02/03/25 09:08 Currently or been in a relationship where the following occur: No concerns reported Const General: alert and awake; No confusion Orientation/consciousness: No confusion HENMT Head: Yes normocephalic Ears: external ears normal and TM's normal bilaterally Face and sinus: Yes normal facial exam Mouth: moist mucous membranes Throat: Yes tonsils normal Eyes Conjunctivae: conjunctivae normal Pupils: Equal, round and reactive pupils present and Pupil accommodation reflex normal Direct Ophthalmoscopy: normal light reflex Neck Neck: No lymphadenopathy Thyroid: Thyroid normal Chest Chest palpation & inspection: normal inspection of the chest Resp Effort & Inspection: normal respiratory effort and no audible wheezes Auscultation: clear to auscultation bilaterally, no crackles, no wheezes and lung sounds not diminished Cardio Rate: regular rate Rhythm: regular rhythm Peripheral pulses: radial pulses present and dorsalis pedis present GI Palpation (GI): no masses Auscultation: normal bowel sounds and normoactive bowel sounds Rectal Exam - Male: Yes deferred Skin General skin exam: no rashes or lesions noted Rashes: no rashes Neuro General: deep tendon reflexes 2+ bilaterally and No confusion Cranial nerves: Yes Equal, round and reactive pupils present, Yes Midline tongue present, Yes Normal hearing present and Yes Ability to bilaterally elevate shoulders present Cognition (Neuro): normal cognition Gait exam (Neuro): Normal gait present Motor exam (neuro): 5/5 motor strength present throughout Deep tendon reflexes (DTR's): Right brachioradialis reflex intensity grade: 2+, Left brachioradialis reflex intensity grade: 2+, Right patellar reflex intensity grade: 2+ and Left patellar reflex intensity grade: 2+ Extrem General: No edema Coding Level of Care Code Est Pt Prev Care 18-39y(38302) Diagnoses Annual physical exam Z00.00 Family history of colon cancer Z80.0 Gastroesophageal reflux disease, unspecified whether esophagitis present K21.9 Esophagitis presence: esophagitis presence not specified Attention deficit hyperactivity disorder (ADHD), predominantly inattentive type F90.0 Attention deficit-hyperactivity disorder type: predominantly inattentive SUDHEER (generalized anxiety disorder) F41.1 H/O paroxysmal supraventricular tachycardia Z86.79 Additional Codes SUDHEER-7 Assessment Billing - SUDHEER-7 Assessment Tool: SUDHEER-7 Assessment 79799 ([id number]) PHQ-9 - 57206 - PHQ-9 Billing: Yes ([id number]) Assessment & Plan Assessment & Plan (1) Annual physical exam: Code(s): Z00.00 - Encounter for general adult medical examination without abnormal findings Category: Medical Plan: Patient is advised to eat healthy, keep well hydrated, keep active and have adequate sleep. (2) Family history of colon cancer: Comment: December 2024 repeat 5 years Code(s): Z80.0 - Family history of malignant neoplasm of digestive organs Category: Medical Plan: Status post colonoscopy December 2024 recall 5 years (3) GERD (gastroesophageal reflux disease): Comment: EGD December 2024 Code(s): K21.9 - Gastro-esophageal reflux disease without esophagitis Category: Medical Qualifiers: Esophagitis presence: esophagitis presence not specified Qualified Code(s): K21.9 - Gastro-esophageal reflux disease without esophagitis Plan: Avoid the foods that causes that usually spicy foods, tomato products, juices, coffee, soda and foods that your sensitive to. After eating do not lie down, allow 3-4 hours before in lie down. And keep the head of bed above 30 degrees to avoid the acid from going up. (4) ADHD: Code(s): F90.9 - Attention-deficit hyperactivity disorder, unspecified type Category: Medical Qualifiers: Attention deficit-hyperactivity disorder type: predominantly inattentive Qualified Code(s): F90.0 - Attention-deficit hyperactivity disorder, predominantly inattentive type Plan: Continue with present medication (5) SUDHEER (generalized anxiety disorder): Code(s): F41.1 - Generalized anxiety disorder Category: Medical Plan: Stable (6) H/O paroxysmal supraventricular tachycardia: Comment: Status post ablation 2011 Echocardiogram July 2011 normal Code(s): Z86.79 - Personal history of other diseases of the circulatory system Category: Medical Plan: Stable Plan History of Present Illness The patient is a 35-year-old male presenting for his annual physical examination and continued management of chronic conditions, including SVT post-ablation, generalized anxiety disorder, ADHD, and GERD. He has a history of melanchopenia and mild renal insufficiency indicated by creatinine. He underwent colonoscopy in December 2024 due to family history, revealing a serrated polyp and mild esophagitis on EGD. Recent lab work showed elevated blood sugar and stable liver function. His GERD management includes pantoprazole and dietary adjustments, with emphasis on avoiding trigger foods. He has a family history of colon, prostate, and blood cancers, necessitating early and regular screening measures. His cardiovascular status is stable with rare palpitations. His medication regimen includes Adderall, a muscle relaxant as needed, multivitamins, and pantoprazole. Health Maintenance - Colonoscopy performed in December 2024, to be repeated in 5 years. - EGD performed in December 2024, confirmed significant esophageal reflux. - Recent blood work (May 2024) showing mildly elevated blood sugar, creatinine at 1.02 mg/dL, and Vitamin D insufficiency. - Advised blood work while fasting to monitor renal function. - Tetanus booster recommended, with reference to the last Tdap in 2013. - Regular monitoring of blood pressure, especially at home due to occasional elevation during clinic visits. - Encouraged continuation of GERD dietary adjustments and avoiding trigger foods. - Recommendations for anti-inflammatory medication management considering renal status. - Encouraged regular exercise, sufficient hydration, and a balanced diet for overall wellness. Social History - Family history: Father with prostate cancer, grandfather and aunt with colon cancer, uncle with blood cancer, maternal grandmother with heart attack, paternal grandfather with stroke. - Alcohol intake: One or two beers twice a week; advised of potential SVT triggers. - Non-smoker and no marijuana smoking; occasional edibles consumption. - Works at [employer]. - Engages in activities maintaining physical health. Review of Systems - Cardiovascular: Denies palpitations, dizziness, syncope, chest pain, shortness of breath. - Gastrointestinal: Reports GERD with significant reflux and occasional constipation; denies nausea, vomiting, swallowing difficulties. - Neurological: Denies dizziness, headaches. - Respiratory: Denies cough, dyspnea. - Musculoskeletal: Denies joint pain; referred for SI joint arthritis evaluation. - Genitourinary: Reports nocturia once per night. - Dermatological: Denies rash, itching. - Allergy/Immunology: Denies significant allergy symptoms except for mild postnasal drip. - Psychiatric: Denies recent anxiety flare-ups; ADHD managed with current dosages. Physical Exam General: Cooperative, healthy appearing, comfortable, no acute distress and well developed Orientation: Patient oriented x3 Limitations: No limitations Head: Normal to inspection Ears: Hearing grossly normal bilaterally Nose: Normal external nose present Face and sinus: Normal facial exam Eyes: Appearance normal, both eyes and all related structures Neck: Normal visual inspection and Yes full ROM Respiratory: Normal respiratory effort and able to speak in complete sentences. Clear to auscultation bilaterally Cardiovascular: Regular rate and rhythm. Normal S1 and S2 GI: Normal to inspection. Soft to palpation and nontender Skin: No rashes or lesions noted Neuro: Patient oriented x3 Extremities: Normal to inspection Results - Labs: Elevated blood sugar, mildly elevated creatinine at 1.02 mg/dL, low Vitamin D levels. - Procedures: Colonoscopy with polyp removal, EGD with esophagitis find. Plan Management focused on GERD through medication and lifestyle modification, with blood testing to monitor kidney function considering mild creatinine elevation. The medication for SVT post-ablation holds, as condition remains stable, and ADHD management continues with timely dosage adjustments. Regular screenings emphasize cancer prevention amid a robust family history. Emphasis on dietary modification, hydration, and exercise supports long-term kidney health maintenance. Patient was informed and verbally consented to the use of an ambient scribe for clinic note documentation during this visit. Discussion Notes I discussed the importance of managing GERD with medications like pantoprazole and diet changes. We reviewed the mildly elevated creatinine levels and potential implications on kidney function. Advised avoiding NSAIDs and limiting alcohol intake to prevent SVT interruptions, especially given family history. Discussed adherence to colonoscopy guidelines given removal of serrated polyps and reiterated maintaining multivitamins for low vitamin D. Addressed family history of cancer requiring regular screenings. The patient expressed interest in reducing follow-up frequency for ADHD medication check-ups, which I have agreed upon, providing monitoring of hydraulic lesions or renal signs remains consistent. Provided anticipatory guidance regarding potential SVT triggers like alcohol and detailed prescribed lifestyle changes. Patient Instructions - Continue taking pantoprazole as prescribed for GERD. - Avoid late-night eating and known trigger foods. - Have fasting blood work done to monitor kidney function. - Drink sufficient water daily, avoid NSAIDs when possible. - Follow up with routine colonoscopies every five years. - Maintain current ADHD medication schedule. - Monitor blood pressure at home regularly. - Limit alcohol intake to mitigate SVT risks. - Return for check-ups every six months for ADHD assessment. - Keep up with vitamin supplementation for vitamin D levels. - Schedule tetanus shot if not done recently.
[2025-02-03 09:05] VITALS: BP 108/62; PULSE 60; O2SAT 98; BMI 24.6
== END 2025-02-03 09:45 | disposition home or self-care (01) ==
LOC: HO.HMCH 09:02
PROVIDERS: PCP Internal Medicine; Visit Provider Internal Medicine
DX: Z00.00 Encounter for general adult medical examination without abnormal findings (principal); Z80.0 Family history of malignant neoplasm of digestive organs; K21.9 Gastro-esophageal reflux disease without esophagitis; F90.0 Attention-deficit hyperactivity disorder, predominantly inattentive type; F41.1 Generalized anxiety disorder; Z86.79 Personal history of other diseases of the circulatory system

== ENCOUNTER → 2025-02-03 09:01 | Outpatient (BNVA) | payer OTHER, SELFPAY | PROVIDERS: PCP Internal Medicine; Visit Provider Internal Medicine | DX: Z00.00 Encounter for general adult medical examination without abnormal findings (principal); K21.9 Gastro-esophageal reflux disease without esophagitis; F90.0 Attention-deficit hyperactivity disorder, predominantly inattentive type; F41.1 Generalized anxiety disorder; Z86.79 Personal history of other diseases of the circulatory system; Z79.899 Other long term (current) drug therapy; Z80.0 Family history of malignant neoplasm of digestive organs | CPT/HCPCS: 96127 ==

== ENCOUNTER 2025-07-14 09:25 | Outpatient (AMB) | payer OTHER, SELFPAY ==
[2025-07-14 09:32] VITALS: BP 136/80; PULSE 75; TEMP 36.1; O2SAT 98; BMI 24.6
--- NOTE | 2025-07-14 09:32 | MHC.PC.OV ---
Vital Signs 07/14/25 09:32 Height 6 ft 2 in Weight 191 lb 6 oz BMI 24.6 BP 136/80 Blood Pressure Location Lt brachial Position Sitting Pulse 75 Pulse Source Pulse Oximeter Temp 97.0 F Temp Source Temporal Artery Scan Pulse Oximetry (%) 98 Oxygen Delivery Method Room Air Intake Visit Reasons: medication f/u Allergies No Known Allergies Allergy (Verified 07/14/25 09:34) Tobacco use date assessed: 07/14/25 Dental Screening Dental Screen Date: 07/14/25 Did you have a dental visit in the last 12 months?: No Did you have a dental problem in the last 6 months where you did not have access to dental care?: No Was dental information given to patient?: Patient has dentist [facility] Medical History Screening-pulmonary TB Urine malodor Viral wart on finger Thoracic back pain COVID-19 virus infection Change in bowel habits Mucus in stool Rectal bleed Hip pain Screening for hypercholesterolemia Annual physical exam Heart palpitations Tinea versicolor Shoulder pain Surgical History H/O adenoidectomy History of cardiac cath H/O elbow surgery History of ankle surgery Family History Paternal Uncle Mental health disorder CLL (chronic lymphocytic leukemia) Father Prostate cancer Paternal Grandfather Colon cancer Paternal Aunt Colon cancer Maternal Grandmother Heart attack Paternal Grandmother CVA (cerebral vascular accident) Social History Housing: House Alcohol intake: current Comment: 1-2 x a week 1-2 drinks Patient Tobacco Use Status: Never used Tobacco Tobacco use type: Cigarette Years Smoked: marijuana- edibles e-Cigarette/Vaping Use: Never Used Second Hand Smoke Exposure: No service: No Current occupational status: employed and unemployed 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 1. Little interest or pleasure in doing things: not at all 2. Feeling down, depressed, or hopeless: not at all 3. Trouble falling or staying asleep, or sleeping too much: not at all 4. Feeling tired or having little energy: not at all 5. Poor appetite or overeating: not at all 6. Feeling bad about yourself - or that you are a failure or have let yourself or your family down: not at all 7. Trouble concentrating on things, such as reading the newspaper or watching television: not at all 8. Moving or speaking so slowly that other people could have noticed. Or the opposite - being so fidgety or restless that you have been moving around a lot more than usual: not at all 9. Thoughts that you would be better off or of hurting yourself in some way: not at all Total score: 0 Depression Screening Interpretation: Negative Depression Screening Done: Yes Source: Developed by Drs. Alex Henry, Brit Dickey, Peter Mcmanus and colleagues, with an educational yousuf from [employer]. Thrive Questionnaire Date Thrive assessed: 02/01/25 I am a: Patient What is your living situation today?: I have a steady place to live Within the past 12 months, did the food you bought not last and you didn't have the money to get more?: Never true Within the past 12 months, did you worry whether your food would run out before you got money to buy more?: Never true Do you have trouble paying for medicines?: No Do you have trouble getting transportation to medical appointments?: No Do you have trouble paying your heating and electricity bill?: No Do you have trouble taking care of your child, family member or friend?: No Do you have trouble with day-to-day activities such as bathing, preparing meals, shopping, managing finances, etc.?: No Are you currently unemployed and looking for a job?: No Are you interested in more education?: No Please select the resources that you would like help with: None Currently or been in a relationship where the following occur: No concerns reported THRIVE Score: 0 AUDIT C Alcohol Use Questionnaire (AUDIT-C) 1. How often do you have a drink containing alcohol?: 2-4 times a month 2. How many drinks containing alcohol do you have on a typical day when you are drinking?: 1 or 2 3. How often do you have six or more drinks on one occasion?: Never Total Score: 2 SUDHEER-7 AMB Questionnaire SUDHEER-7 Date SUDHEER - 7 assessed: 01/06/25 Feeling nervous, anxious, or on edge: 1 = Several days Not being able to stop or control worryin = Not at all Worrying too much about different things: 0 = Not at all Trouble relaxin = Several days Being so restless that it is hard to sit still: 0 = Not at all Becoming easily annoyed or irritable: 2 = More than half the days Feeling afraid as if something awful might happen: 0 = Not at all Total SUDHEER-7 score (0-4 normal; 5-9 mild; 10-14 moderate; 15-21 severe): 4 Source: Developed by Drs. Alex Henry, Brit Dickey, Peter Mcmanus and colleagues, with an educational yousuf from [employer]. Physical exam (Primary Care) Vital Signs: Last Vital Signs Temp 97.0 F 07/14/25 09:32 Pulse 75 07/14/25 09:32 BP 136/80 07/14/25 09:32 Pulse Ox 98 07/14/25 09:32 Oxygen Delivery Method Room Air 07/14/25 09:32 BMI result Body Mass Index 24.6 Tobacco/Smoking Status: Tobacco use Status Tobacco use date assessed 07/14/25 07/14/25 09:35 Patient Tobacco Use Status Never used Tobacco 07/14/25 09:35 Tobacco use type Cigarette 07/14/25 09:35 e-Cigarette/Vaping Use Never Used 07/14/25 09:35 PHQ-9: PHQ-9 Score PHQ-9: Total score 0 07/14/25 09:35 Depression Screening Interpretation: Negative Thrive Assessment: Date of Thrive Assessment Date Thrive assessed 02/01/25 07/14/25 09:35 Currently or been in a relationship where the following occur: No concerns reported Const General: alert; No acute distress Eyes Conjunctivae: conjunctivae normal Resp Auscultation: clear to auscultation bilaterally Cardio Rate: regular rate Rhythm: regular rhythm GI Inspection: Yes normal to inspection Extrem General: Yes normal to inspection and No edema Coding Level of Care Code Est Pt Level 4 (78679) Complex EM visit Add On G2211 Diagnoses Attention deficit hyperactivity disorder (ADHD), predominantly inattentive type F90.0 Attention deficit-hyperactivity disorder type: predominantly inattentive H/O paroxysmal supraventricular tachycardia Z86.79 Gastroesophageal reflux disease, unspecified whether esophagitis present K21.9 Esophagitis presence: esophagitis presence not specified Leukopenia D72.819 Elevated blood sugar R73.9 Assessment & Plan Assessment & Plan (1) ADHD: Code(s): F90.9 - Attention-deficit hyperactivity disorder, unspecified type Category: Medical Qualifiers: Attention deficit-hyperactivity disorder type: predominantly inattentive Qualified Code(s): F90.0 - Attention-deficit hyperactivity disorder, predominantly inattentive type Plan: Continue with present medication continue to monitor blood pressure and heart rate (2) H/O paroxysmal supraventricular tachycardia: Comment: Status post ablation 2011 Echocardiogram July 2011 normal Code(s): Z86.79 - Personal history of other diseases of the circulatory system Category: Medical Plan: Stable (3) GERD (gastroesophageal reflux disease): Comment: EGD December 2024 Code(s): K21.9 - Gastro-esophageal reflux disease without esophagitis Category: Medical Qualifiers: Esophagitis presence: esophagitis presence not specified Qualified Code(s): K21.9 - Gastro-esophageal reflux disease without esophagitis Plan: Avoid the foods that causes that usually spicy foods, tomato products, juices, coffee, soda and foods that your sensitive to. After eating do not lie down, allow 3-4 hours before in lie down. And keep the head of bed above 30 degrees to avoid the acid from going up. (4) Leukopenia: Code(s): D72.819 - Decreased white blood cell count, unspecified Category: Medical Plan: Advised to repeat blood work (5) Elevated blood sugar: Code(s): R73.9 - Hyperglycemia, unspecified Category: Medical Plan: Continuing to monitor. Decrease the amount of carbohydrate intake, pasta, bread, rice and potatoes are all sugar and that is aside from all the sweet stuff, remember that fruits are good but they are Sweet also. Plan History of Present Illness The patient is a 35-year-old male presenting for a follow-up on chronic conditions and preventative care. The patient has a history of Paroxysmal Supraventricular Tachycardia (PSVT), which has been managed with medication. He also has Attention Deficit Hyperactivity Disorder (ADHD), for which he is currently on medication. Gastroesophageal Reflux Disease (GERD) is another chronic condition being managed with lifestyle modifications and medication. The patient was last seen in January 2025, and his last blood work in May 2024 showed normal blood count with mild leukopenia, normal electrolytes, and a creatinine level of 1.02 mg/dL. Blood sugar was recorded at 106 mg/dL, and cholesterol levels were normal. There was no vitamin D deficiency noted. Preventative care measures include a recommendation for a colonoscopy in five years. Health Maintenance - Colonoscopy recommended in 5 years as part of preventative care. Social History Review of Systems Physical Exam Results - Labs: Normal blood count with mild leukopenia, normal electrolytes, creatinine 1.02 mg/dL, blood sugar 106 mg/dL, normal cholesterol, no vitamin D deficiency. Plan Patient was informed and verbally consented to the use of an ambient scribe for clinic note documentation during this visit. 1. Paroxysmal Supraventricular Tachycardia (Psvt) The patient will continue with current medication management for PSVT and monitor heart rate and blood pressure regularly. 2. Attention Deficit Hyperactivity Disorder (Adhd) The patient will continue with current ADHD medication. 3. Gastroesophageal Reflux Disease (Gerd) The patient will continue with current GERD management plan, including lifestyle modifications and medication. 4. Preventative Care The patient is advised to repeat blood work and continue monitoring diabetes and other health parameters. Discussion Notes Patient Instructions - Continue current medications for PSVT, ADHD, and GERD. - Monitor blood pressure and heart rate regularly. - Follow lifestyle modifications for GERD management. - Schedule a colonoscopy in 5 years. - Repeat blood work as advised. Orders: Orders Complete Blood Count Auto Diff Today R73.9 - Hyperglycemia, unspecified Comprehensive Met. Panel Today R73.9 - Hyperglycemia, unspecified Thyroid Stimulating Hormone Today R73.9 - Hyperglycemia, unspecified Hemoglobin A1c Today R73.9 - Hyperglycemia, unspecified Medications: Refilled dextroamphetamine-amphetamine 20 mg ER (Adderall XR) Partial Fill upon patient request. 20 mg PO DAILY 28 caps 0RF R73.9 - Hyperglycemia, unspecified
== END 2025-07-14 10:16 | disposition home or self-care (01) ==
LOC: HO.HMCH 09:26
PROVIDERS: PCP Internal Medicine; Visit Provider Internal Medicine
DX: F90.0 Attention-deficit hyperactivity disorder, predominantly inattentive type (principal); Z86.79 Personal history of other diseases of the circulatory system; K21.9 Gastro-esophageal reflux disease without esophagitis; D72.819 Decreased white blood cell count, unspecified; R73.9 Hyperglycemia, unspecified

== ENCOUNTER 2025-10-06 09:39 | Outpatient (AMB) | payer OTHER, SELFPAY ==
--- NOTE | 2025-10-06 09:41 | MHC.PC.OV ---
Intake Visit Reasons: telehealth visit 3 months ADHD Allergies No Known Allergies Allergy (Verified 10/06/25 09:44) Medication List - Last Reconciled 10/06/25 by Víctor Monroe MD dextroamphetamine-amphetamine 20 mg ER (Adderall XR) 20 mg PO DAILY hydrocortisone 2.5% (Proctosol HC) 1 appl [place] BID-QID PRN multivitamin 1 tab PO DAILY pantoprazole 20 mg PO DAILY sertraline 50 mg PO DAILY Tobacco use date assessed: 07/14/25 Dental Screening Dental Screen Date: 07/14/25 HPI HPI Comments History of Present Illness Details History of Present Illness The patient is a 35-year-old male presenting for a telehealth follow-up for medication management. He has a history of supraventricular tachycardia (SVT), generalized anxiety disorder (ALEXX), attention-deficit/hyperactivity disorder (ADHD), and gastroesophageal reflux disease (GERD). His last visit was in July 2025, and his last complete blood count was in May 2024. His current medications include Adderall XR 20 mg once a day, pantoprazole 20 mg once a day, and sertraline 50 mg daily. He also takes a daily multivitamin. For his anxiety, the patient sees a private practice counselor, Sujatha, once a week and reports that he is doing well. [facility] Medical History Screening-pulmonary TB Urine malodor Viral wart on finger Thoracic back pain COVID-19 virus infection Change in bowel habits Mucus in stool Rectal bleed Hip pain Screening for hypercholesterolemia Annual physical exam Heart palpitations Tinea versicolor Shoulder pain Surgical History H/O adenoidectomy History of cardiac cath H/O elbow surgery History of ankle surgery Family History Paternal Uncle Mental health disorder CLL (chronic lymphocytic leukemia) Father Prostate cancer Paternal Grandfather Colon cancer Paternal Aunt Colon cancer Maternal Grandmother Heart attack Paternal Grandmother CVA (cerebral vascular accident) Social History Housing: House Alcohol intake: current Comment: 1-2 x a week 1-2 drinks Patient Tobacco Use Status: Never used Tobacco Tobacco use type: Cigarette Years Smoked: marijuana- edibles e-Cigarette/Vaping Use: Never Used Second Hand Smoke Exposure: No service: No Current occupational status: employed and unemployed 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 Alex Henry, Brit Dickey, Peter Mcmanus and colleagues, with an educational yousuf from [employer]. Review of Systems Narrative Review of Systems - General: Reports feeling well. - Cardiovascular: Denies palpitations or chest pain. - Neurological: Denies dizziness. Physical exam (Primary Care) Tobacco/Smoking Status: Tobacco use Status Tobacco use date assessed 07/14/25 10/06/25 09:45 Patient Tobacco Use Status Never used Tobacco 10/06/25 09:45 Tobacco use type Cigarette 10/06/25 09:45 e-Cigarette/Vaping Use Never Used 10/06/25 09:45 Thrive Assessment: Date of Thrive Assessment Date Thrive assessed 02/01/25 10/06/25 09:45 Telehealth Telehealth Telehealth Platform: Telephone Location of provider rendering services: practice address Location of patient: address on file Patient Identification confirmed using: Name, : Yes Telehealth method: voice only Patient verbally consented to treatment: Yes Patient verbally consented to billing insurance company: Yes Patient informed of any privacy concerns related to visit: Yes Minutes spent on Phone/Video with Pt.: 25 Coding Level of Care Code Tele Est Pt Level 4 (68257) Diagnoses ALEXX (generalized anxiety disorder) F41.1 Attention deficit hyperactivity disorder (ADHD), predominantly inattentive type F90.0 Attention deficit-hyperactivity disorder type: predominantly inattentive Gastroesophageal reflux disease, unspecified whether esophagitis present K21.9 Esophagitis presence: esophagitis presence not specified Assessment & Plan Assessment & Plan (1) ALEXX (generalized anxiety disorder): Comment: Elma anna Private.once a week(September 2025) Code(s): F41.1 - Generalized anxiety disorder Category: Medical Plan: Continue with counseling and therapy (2) ADHD: Code(s): F90.9 - Attention-deficit hyperactivity disorder, unspecified type Category: Medical Qualifiers: Attention deficit-hyperactivity disorder type: predominantly inattentive Qualified Code(s): F90.0 - Attention-deficit hyperactivity disorder, predominantly inattentive type Plan: Continue with present medication discussed about monitoring blood pressure and heart rate (3) GERD (gastroesophageal reflux disease): Comment: EGD December 2024 Code(s): K21.9 - Gastro-esophageal reflux disease without esophagitis Category: Medical Qualifiers: Esophagitis presence: esophagitis presence not specified Qualified Code(s): K21.9 - Gastro-esophageal reflux disease without esophagitis Plan: Avoid the foods that causes that usually spicy foods, tomato products, juices, coffee, soda and foods that your sensitive to. After eating do not lie down, allow 3-4 hours before in lie down. And keep the head of bed above 30 degrees to avoid the acid from going up. Reminded about blood work Plan Plan Patient was informed and verbally consented to the use of an ambient scribe for clinic note documentation during this visit. 1. Attention-Deficit/Hyperactivity Disorder (Adhd) And Generalized Anxiety Disorder (Alexx) The patient's ADHD and ALEXX are stable on his current medication regimen of Adderall XR 20 mg and sertraline 50 mg daily. He denies adverse effects, including palpitations, dizziness, or chest pain. He will continue his current medications, and prescription refills will be sent. He will also continue with his weekly therapy. 2. Gastroesophageal Reflux Disease (Gerd) The patient's GERD is stable on pantoprazole 20 mg once a day. He will continue this medication, and a refill will be provided. 3. Supraventricular Tachycardia (Svt) The patient has a history of SVT and currently denies palpitations, chest pain, or dizziness. Monitoring of blood pressure and heart rate was advised. 4. Health Maintenance The patient was advised to get blood work done but misplaced the lab orders. A new lab order will be mailed to him for testing at [facility]. Additionally, the patient was advised to be cautious during the flu season. Discussion Notes I reviewed the patient's current medications, including Adderall XR, pantoprazole, and sertraline, and confirmed he is stable on this regimen. We discussed that his ADHD and anxiety are well-managed, supported by weekly therapy. I confirmed he has no cardiovascular side effects like palpitations or chest pain. I agreed to send refills for his medications as requested. I also addressed his request for a new set of lab orders, which I will have mailed to him, as he gets his blood work done at [facility]. I provided anticipatory guidance regarding the current flu season. Patient Instructions - Continue taking your current medications as prescribed: Adderall XR 20 mg daily, pantoprazole 20 mg daily, and Zoloft (sertraline) 50 mg daily. - A refill for your medications will be sent to your pharmacy. - New lab orders will be mailed to your home. Please get your blood work done at [facility]. - Continue with your weekly therapy sessions. - Monitor your blood pressure and heart rate. - Take precautions to avoid getting sick during this flu season. Medications: Refilled dextroamphetamine-amphetamine 20 mg ER (Adderall XR) Partial Fill upon patient request. 20 mg PO DAILY 28 caps 0RF R73.9 - Hyperglycemia, unspecified
--- OUTSIDE RECORDS SUMMARY | 2025-10-06 10:15 | XMS_ITS | Encounter Summary ---
Author Organization [facility] Address [address] [place] [address] Phone Care Team Providers Care Group Product Manager Name Role Phone Josh Hanley MD Unavailable [phone] Melony Vega MD Primary Care Provider Unavaila ble Josh Hanley MD Unavailable [phone] Andreia Tavera NP Unavailable Unavailable Encounter Details Date Type Department Care Team (Late st Contact Info) Description 11/24/2011 Documentation Cardiac Nuclear Testing [address] [id number] Alex Morales MD [address] [phone] Social History Tobacco Use Types Packs/Day Years Used Date Smoking Tobacco: Never Assessed Sex and Gender Information Value Date Recorded Sex Assigned at Not on file Legal Sex Male 10:28 PM EDT Gender Identity Not on file Sexual Orientation Not on file documented as of this encounter Miscellaneous Notes * Office Visit - Alex Morales MD - 11/24/2011 11:26 AM EST November 09, 2011 Renaldo Morrison M.D. [place] [id number] RE: CRISTINO SPARROW MR#: [id number] : [address] Morrison, I had the pleasure of seeing your patient Cristino Sparrow in [facility] this afternoon in follow up after catheter ablation of supraventricular tachycardia. 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 Post ablation, he reported recurrence of palpitations and underwent a 30-day event monitor, which only documented sinus tachycardia correlating with his palpitation symptoms. He was no longer observed to have supraventricular tachycardia. He currently denies any further episodes of palpitations. He attributed his symptoms post ablation to anxiety and being more aware of his heart. He denies presyncope, syncope, chest discomfort, or shortness of breath. His only complaint is that he has felt more fatigued lately and has been sleepinga lot. There have no other interval changes in his past medical, which is only significant for gastroesophageal reflux disease. His current medications include prilosec 20 mg twice daily. He has no known drug allergies. A comprehensive review of systems was above and otherwise unremarkable. He denied any fevers, chills, night sweats, weight gain, hot or cold intolerance, blurred vision, cough, nausea, vomiting, diarrhea, constipation, chest pain, orthopnea, paroxysmal nocturnal dyspnea, presyncope, syncope or musculo skeletal pain. On physical examination, his blood pressure was 136/66 mmHg an his heart rate was 60 beats per minute and regular. His neck was supple and without thyromegaly. His jugular venous pressure was 6 cm. His lungs were clear. A comprehensive cardiovascular examination was performed. He had a regular rateand rhythm with no appreciable murmurs or gallops. His abdomen was soft, non tender, non distended.He had normal active bowel sounds. His extremities were warm without cyanosis, clubbing, or edema. He has 2+ dorsal pedal and posterior tibial pulses bilaterally. In summary, Mr. 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 He has no further recurrence of his supraventricular tachycardia and I anticipate that he will continue to remain free of symptoms. He is currently complaining of fatigue and excessive sleepiness. I suggested that he follow up withDr. Walls for thyroid studies and further evaluation. Thank you for allowing me to participate in the care of your patient. Sincerely, Alex Morales M.D. RH:karina cc: Rickie Walls M.D. [facility] [address] [place] [phone] documented in this encounter Plan of Treatment Not on file documented as of this encounter Visit Diagnoses Not on filedocumented in this encounter Care Teams Group Product Manager Relationship Specialty Start Date End Date Josh Hanley MD [address] [place] [phone] PCP - Insurance 12/12/18 02/05/19 Melony Vega MD [address] [place] [phone] PCP - General Internal Medicine 02/06/19 Josh Hanley MD [address] [place] [phone] PCP - Insurance 02/27/19 05/29/22 Andreia Tavera NP [address] [place] [phone] PCP - Insurance 05/30/22 documented as of this encounter
--- OUTSIDE RECORDS SUMMARY | 2025-10-06 10:15 | XMS_ITS | Clinical Summary ---
Author Organization [facility] Address [address] [place] [address] Phone Care Team Providers Care Senior Training Specialist Name Role Phone Melony Vega MD Primary Care Provider Andreia Malin NP Unavailable Unavailable Allergies No known active allergies Medications multivitamin capsule Take 1 capsule by mouth daily. 01/02/2019 Active Active Problems Patient Care Coordination No te Formatting of this note migh t be different from the original. 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21 Problem Noted Date Diagnosed Date Bradycardia 01/23/2019 Overview (02/06/2019): No precipitating factors Monday night HR was 41 on apple watch A minute later, felt anxious, and felt off A Wave hit him; denies CP, chest pressure, dizziness Did feel shaky Stayed in the 40-50s Self-resolved after 30 minutes BP 160/80 at the time Wed, Kari, Fri and Sat felt really fatigued Occasionally has intermittent chest pain; sharp, sudden in onset, very brief Exercises but denies any symptoms; denies dyspnea, TORRES, numbness, tingling, dizziness Family history notable for maternal grandmother who had an MN at late 50s Denies anyone in 20s and 30s 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 Today Normotensive 129/70, normal HR With pulse 89 BPM Denies smoking Drink ETOH 3-4x/month; denies drinking before this episode Denies any drug use hx Assessment & Plan (02/06/2019 10:33 AM EDT): wave of anxiety and shakiness occurred after seeing apple watch HR of 41 BP orin afterwards Likely sympathetic response I/s/o anxiety after abnormal incidental finding of bradycardia Baseline EKG today in clinic WNL with NSR at 66 bpm Counseled that if HR is tachycardic, or he has symptomatic bradycardia should RTC Labs reassuring (TSH, CBC, BMP) Referred to cardiology to establish care with a cardiololgist as well H/O atrioventricular katie a blation As you aware, he is a 21 year-old gentleman with a history of supraventricular tachycardia who underwent successful catheter ablation of atypical AV katie reentrant 01/18/2019 Lymphadenopathy of right cervical region 019 Overview (01/23/2019): LND with neg HIV test Resolved 01/2019 Assessment & Plan (01/23/2019 6:22 PM EDT): No palpable lymphadenopathy 01/2019 Assessment & Plan (01/08/2019 10:18 PM EDT): Attending note Lymphadenopathy 01/02/2019 right anterior cervical chain regressing in size Check HIV Routine adult health maintenance 01/02/2019 Overview (01/02/2019): Vaccine Flu: Due fall 2018. TDAP: Last 2015. Due 2025. Assessment & Plan (01/02/2019 4:08 PM EDT): Adult ADHD 01/02/2019 Overview (01/23/2019): Hx ADHD Has scheduled f/up with psych for management Assessment & Plan (01/23/2019 6:32 PM EDT): F/up with psych Assessment & Plan (01/02/2019 5:31 PM EDT): Pt used to be on methylphenidate 20mg BID. Referral to psychiatry to re-initiate medication. Happy to take over prescribing this medication after discussion with psychiatry, if they are amenable. Resolved Problems Problem Noted Date Diagnosed Date Resolved Date Generalized abdominal pain 01/02/2019 0 02/06/2019 Assessment & Plan (01/23/2019 3:44 PM EDT): Resolved 01/23/19 Assessment & Plan (01/02/2019 5:31 PM EDT): Prolonged abdominal pain + fatigue + enlarged lymph node is suggestive of viral mono, but not conclusive. Pt is low risk for HIV (no IVDU, no unprotected sex), but fatigue + enlarged lymph node is suggestive. After discussion with pt, agreed to get HIV test for reassurance. Reassuring that symptoms have resolved. Pt encouraged to return should symptoms recur. Immunizations Immunization Administration Dates Next Due Influenza unspecified, historical 07/18/2018 Family History Medical History Relation Name Comments Cancer Father Hyperlipidemia Father Hypertension Father Alcohol abuse Maternal Grandfather Diabetes Mellitus Maternal Grandfather Hypertension Maternal Grandfather Heart disease Maternal Grandmother Hypertension Mother Cancer Paternal Grandfather Stroke Paternal Grandmother Relation Name Status Comments Father Prostate cancer , dx at age 66 Maternal Grandfather Maternal Grandmother Mother Paternal Grandfather Colon c ancer, 70s Paternal Grandmother Social History Tobacco Use Types Packs/Day Years Used Date Smoking Tobacco: Never Smokeless Tobacco: Never Alcohol Use Standard Drinks/Week Comments Yes 2 (1 standard drink = 0.6 oz pur e alcohol) Housing Answer Date Recorded Not on file 01/24/2021 Medications Answer Date Recorded Not on file 10/24/2019 Utilities Answer Date Recorded Not on file 10/24/2019 Caregiving [place] Answer Date Recorded Not on file 10/24/2019 Employment Answer Date Recorded Not on file 10/24/2019 Education Answer Date Recorded Not on file 10/24/2019 Food Answer Date Recorded Not on file 01/24/2021 Not on file 01/24/2021 Transportation Answer Date Recorded Not on file 10/24/2019 Social Support Answer Date Recorded Not on file 07/14/2021 Immigration Answer Date Recorded Immigration Not on file 08/11/2023 Finance Answer Date Recorded Finance Not on file 08/11/2023 Technology Answer Date Recorded Technology Not on file 08/11/2023 Sex and Gender Information Value Date Recorded Sex Assigned at Not on file Legal Sex Male 10:28 PM EDT Gender Identity Not on file Sexual Orientation Not on file Last Filed Vital Signs Vital Sign Reading Time Taken Comments Blood Pressure 138/78 04/24/2019 1:38 PM EDT Pulse 69 04/24/2019 1:38 PM EDT Temperature 36.6 C (97.8 F) 01/23/2019 3:28 PM EDT Respiratory Rate 18 04/24/2019 1:38 PM EDT Oxygen Saturation 99% 04/24/2019 1:38 PM EDT Inhaled Oxygen Concentration - - Weight 86.3 kg (190 lb 3.2 oz) 04/24/2019 1:38 P M EDT Height 185.4 cm (6' 0.99 ) 04/24/2019 1:38 PM ED T Body Mass Index 25.1 04/24/2019 1:38 PM EDT Plan of Treatment Health Maintenance Due Date Last Done Comments Hepatitis B Lifetime Screening 1992 Hepatitis C Antibody Lifetim e Screening 1992 Oral Health Screen 1992 HEIP Disability Screen 01/02/1997 Psych Substance Use Screen 2004 DTAP/TDAP VACCINE (1 - Tdap) 01/02/2011 HPV VACCINES (1 - 3-dose SCD M series) 01/02/2019 BEHAVIORAL HEALTH SCREEN 07/25/2019 01/23/2019 THRIVE SCREENING 07/25/2019 01/23/2019 COVID-19 Vaccine (1 - 2024-2 6 season) 2025 INFLUENZA VACCINE (#1) 2025 07/18/2018 Zoster Vaccine (1 of 2) 01/02/2042 HIV Lifetime Screening Completed 01/02/2019 IPV VACCINES Aged Out No longer eligi ble based on patient's age to complete this topic MENINGOCOCCAL B Aged Out No longer el igible based on patient's age to complete this topic Pneumonia Vaccine 0-49 Years Aged Out No longer eligible based on patient's age to complete this topic ROTAVIRUS VACCINES Aged Out No longer eligible based on patient's age to complete this topic Procedures Procedure Name Priority Date/Time Associated Diagnosis Comments HIV-1/2 AG/AB INITIAL SCREENING Routine 01/02/2019 4:29 PM EDT Routine adult health maintenance from Last 3 Months or Most Recently Relevant to Health Maintenance Results * HIV-1/2 AG/AB Initial Screening (01/02/2019 4:29 PM EDT) HIV Ag/Ab Combined Qualitative NON-REACTI VE NON-REACT EVA 01/02/2019 7:49 PM EDT [place] 01/02/2019 4:29 PM EDT 01/02/2019 4:36 PM EDT us Bruna Hairston MD LAB BLOOD ORDERABLES Final Res ult [facility]<9>CLIA [id number]<9>[address] [address], from Last 3 Months or Most Recently Relevant to Health Maintenance Care Teams Senior Training Specialist Relationship Specialty Start Date End Date Melony Vega MD PCP - General Internal Medicine 02/06/19 Andreia Tavera NP PCP - Insurance 05/30/22
== END 2025-10-06 10:26 | disposition home or self-care (01) ==
LOC: HO.HMCH 09:39
PROVIDERS: PCP Internal Medicine; Visit Provider Internal Medicine
DX: F41.1 Generalized anxiety disorder (principal); F90.0 Attention-deficit hyperactivity disorder, predominantly inattentive type; K21.9 Gastro-esophageal reflux disease without esophagitis